=== PATIENT | male | born 1965 | race Two or more races ===

== ENCOUNTER 2021-03-04 10:39 | Emergency (ER) | payer MEDICARE, SELFPAY ==
--- NOTE | ~2021-03-04 | XR_ITS ---
EXAMINATION: XR CHEST CLINICAL INFORMATION: Cough. COMPARISON: None TECHNIQUE: Frontal view of the chest was obtained. FINDINGS: There is elevated right hemidiaphragm. The lungs are somewhat expanded and clear. The heart size and pulmonary vascularity is normal. No gross bony abnormality seen. XR/XR chest 1V IMPRESSION: Elevated right hemidiaphragm. The lungs are clear.
[2021-03-04 10:52] VITALS: BP 128/81; PULSE 96; RESP 21; TEMP 36.1; O2SAT 94; BMI 38.0
--- NOTE | 2021-03-04 13:43 | ED.URI ---
HPI - URI/Sore Throat General Chief Complaint: Upper Respiratory Symptoms Stated Complaint: congestion Time Seen by Provider: 03/04/21 11:17 Source: patient Mode of arrival: ambulatory Limitations: no limitations History of Present Illness HPI Narrative: sore throat and cough with increased congestion. patient continually coughing has been occurrin for 7 days. Patient is covid negative and has the booster Related Data Previous Rx's Medication Instructions Recorded albuterol sulfate 90 mcg/actuation 2 puff INHALATION Q4-6H PRN #8.5 g 03/04/21 aerosol inhaler prednisone 20 mg tablet 60 mg PO DAILY #12 tab 03/04/21 Allergies Allergy/AdvReac Type Severity Reaction Status Date / Time No Known Allergies Allergy Unverified 10/27/19 15:14 [No Known Allergies*] Review of Systems Neurologic: Denies Sensory deficit (Neuro) [facility] Past Medical History Medical History (Updated 03/04/21 @ 14:21 by Tomás Boyd MD) Atrial fibrillation Hypertension Surgical History (Updated 03/04/21 @ 10:56 by Luz Waterman) Hx of cholecystectomy S/P appendectomy Social History Social History Advance Directives: No Advance Directives Information Provided: No Physical Exam Vital Signs: Vital Signs: Last Vital Signs Temp 97.0 F 03/04/21 10:52 Pulse 96 03/04/21 10:52 Resp 21 H 03/04/21 10:52 BP 128/81 03/04/21 10:52 Pulse Ox 94 03/04/21 10:52 BMI result Body Mass Index 38.0 Const: Other: coughing General: healthy appearing Nutritional Appearance: average body habitus Orientation/consciousness: oriented to person and patient oriented x3 Limitations: no limitations HENMT: Head: Yes normal to inspection Ears: external ears normal General nose exam: Normal external nose present Mouth: Normal oral and palatal mucosa present and oropharynx normal Throat: Yes posterior oropharynx normal Eyes: General: appearance normal, both eyes and all related structures Neck: Other: supple Neck: Yes normal visual inspection Chest: Chest palpation & inspection: normal inspection of the chest Resp: Other: lungs with diffuse wheezing Cardio: Jugular venous distension: no JVD Rate: regular rate Rhythm: regular rhythm Heart sounds: S1 normal heart sound present and S2 normal heart sound present GI: Inspection: Yes normal to inspection Palpation (GI): Soft to palpation, nontender and No hepatosplenomegaly present Auscultation: normal bowel sounds : General: Yes no CVA tenderness Back/Spine/Pelvis: Back: no CVA tenderness Skin: General skin exam: no rashes or lesions noted Neuro: General: oriented to person and patient oriented x3 Cranial nerves: Yes CN's II-XII intact bilaterally Motor exam (neuro): 5/5 motor strength present throughout Sensory Exam: No Sensory deficit (Neuro) Extrem: General: Yes normal to inspection Psych: Appearance: grossly normal Course Reevaluation(s) Reevaluation #1: patient with wheezing, given treatment and prednisone. He was swabbed for COVID which is pending. will dc home Time: 14:20 MDM - URI/Sore Throat Imaging Data Chest x-ray: Radiologist's impression: FINDINGS: There is elevated right hemidiaphragm. The lungs are somewhat expanded and clear. The heart size and pulmonary vascularity is normal. No gross bony abnormality seen. XR/XR chest 1V IMPRESSION: Elevated right hemidiaphragm. The lungs are clear. ? Discharge Plan Discharge Clinical Impression: Asthma Qualifiers: Asthma severity: moderate Asthma persistence: persistent Asthma complication type: unspecified Qualified Code(s): J45.40 - Moderate persistent asthma, uncomplicated Patient Disposition: Home, Self-Care Instructions: Asthma (ED) Prescriptions: New prednisone 20 mg tablet 60 mg PO DAILY Qty: 12 RF: 0 albuterol sulfate 90 mcg/actuation HFA aerosol inhaler 2 puff inhalation Q4-6H PRN (Reason: shortness of breath or wheezing) Qty: 8.5 RF: 0 Referrals: Praveen Fry MD [Primary Care Provider] - 1 week
[2021-03-04] MEDS: predniSONE 20 MG TABLET 60 MG PO (14:10)
[2021-03-04] MEDS: Albuterol Sulfate 90 MCG 8 GM INHALER 4 PUFF INHALE (14:11)
[2021-03-04 14:35] LABS: COVID-19 Test Negative (Negative); IDNOW Serial# 08D9AD1C
== END 2021-03-04 14:34 | disposition home or self-care (01) ==
PROVIDERS: Emergency Provider Emergency Medicine; PCP Internal Medicine
DX: J45.40 Moderate persistent asthma, uncomplicated (principal); Z20.822 Contact with and (suspected) exposure to COVID-19; I10 Essential (primary) hypertension; I48.91 Unspecified atrial fibrillation
CPT/HCPCS: 71045; 87635; 99283; 99284

== ENCOUNTER 2021-04-10 15:19 | Emergency (ER) | payer MEDICARE, SELFPAY ==
--- NOTE | 2021-04-10 | ECG_ITS ---
Test Reason : chest pain Blood Pressure : / mmHG Vent. Rate : 115 BPM Atrial Rate : 000 BPM P-R Int : 000 ms QRS Dur : 082 ms QT Int : 320 ms P-R-T Axes : 000 004 024 degrees QTc Int : 442 ms Atrial fibrillation with rapid ventricular response with premature ventricular or aberrantly conducted complexes Nonspecific ST and T wave abnormality Abnormal ECG No previous ECGs available Referred By: Generic ED Physician Electronically Signed By:Pool Peguero
[2021-04-10 15:26] VITALS: BP 148/79; PULSE 106; RESP 20; TEMP 36.9; O2SAT 97; BMI 39.3
[2021-04-10 15:49] LABS: MANUAL DIFF FLAG NO
[2021-04-10 15:50] LABS: Basophils Percent Auto 0.3 % (0-2); Eosinophils Absolute Auto 0.1 X10*3/uL (0.0-0.4); Hemoglobin 14.8 g/dl (14.0-18.0); Imm Gran Abs Auto 0.02 X10*3/uL (0.00-0.03); Imm Gran Pct Auto 0.2 % (0.0-0.4); Lymphocytes Percent Auto 34.6 % (20-40); Mean Corpuscular HGB Conc 33.6 g/dl (31.0-36.0); Mean Corpuscular Hemoglobin 30.5 pg (27.0-33.0); Mean Corpuscular Volume 90.7 fL (80.0-98.0); Mean Platelet Volume 10.7 fL (9.4-12.4); Monocytes Absolute Auto 0.9 X10*3/uL (0.1-1.2); Monocytes Percent Auto 10.7 % (2-11); Neutrophils Absolute Auto 4.6 x10*3/uL (2.0-8.3); Neutrophils Percent Auto 53.2 % (45-73); Platelet Count 186 X10*3/uL (160-400); Red Blood Count 4.85 X10*6/uL (4.60-5.80); Red Cell Distribution Width 12.5 % (11.0-16.0); White Blood Count 8.6 X10*3/uL (4.8-10.8)
[2021-04-10 15:55] VITALS: BP 137/77; PULSE 110; RESP 26; O2SAT 98
--- NOTE | 2021-04-10 16:11 | PC.NURSE ---
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 EKG shows Afib w/RVR. Pt on xarelto for Afib at this time. Pt was supposed to go for cardiac cath 03/25 which was postponed until 04/14 due to not stopping xarelto prior to procedure. Pt CP is reproducable with palpation, worse with inspiration and movement. Pt also states he has had increasing SOB and has not been taking his Lasix at home. Pt is in Afib on the monitor, +pulses, skin warm dry and intact, LCA, abd soft, non tender. IV established, awaiting further orders. Will continue to monitor.
--- NOTE | 2021-04-10 16:11 | ED.CHESTPAIN ---
HPI - Chest Pain General Chief Complaint: Chest Pain Stated Complaint: heart attack? back/ chest pain Time Seen by Provider: 04/10/21 15:54 Source: patient and old records reviewed History of Present Illness HPI narrative: Patient with a history of atrial fibrillation on Xarelto presents with 2 days of left-sided chest pain. Pain has been constant but waxing waning but never fully resolving. It is left mid chest. Worse with inspiration in bending forward. No prior history of pain like this before. He has a contact center consultant and is due for cardiac catheterization on Thursday as his contact center consultant was concerned for coronary artery disease. He does not have nitroglycerin and typically does not get chest pain however. No recent medication changes. No precipitating factors the patient is aware of. No cough fevers or chills. No COVID exposures. His triple vaccinated against COVID with his last dose last year. Pfizer No alleviating factors. Patient is not taking medications so far for the pain. He called the contact center consultant who recommended comes to the emergency department for further evaluation Recently has been having worsening orthopnea. He states he is supposed to be on furosemide but has not taken it due to frequent urination especially at night. Related Data Previous Rx's Medication Instructions Recorded albuterol sulfate 90 mcg/actuation 2 puff INHALATION Q4-6H PRN #8.5 g 03/04/21 aerosol inhaler prednisone 20 mg tablet 60 mg PO DAILY #12 tab 03/04/21 Allergies Allergy/AdvReac Type Severity Reaction Status Date / Time No Known Allergies Allergy Verified 04/10/21 15:26 [No Known Allergies*] Review of Systems Constitutional: Comments: No fevers or chills Cardiovascular: Comments: Chest pain. As described. No palpitations Respiratory: Comments: Positive dyspnea as well as orthopnea specially recently. Gastrointestinal: Comments: No nausea vomiting diarrhea or abdominal pain Integumentary/Breasts: Comments: No rash Neurologic: Comments: No weakness numbness paresthesias PMFSH Past Medical History Medical History (Updated 04/10/21 @ 17:16 by Keyshawn Garzon MD) Atrial fibrillation Hypertension Surgical History (Updated 03/04/21 @ 10:56 by Luz Waterman) Hx of cholecystectomy S/P appendectomy Social History Social History Advance Directives: No Advance Directives Information Provided: No Physical Exam Vital Signs: Vital Signs: Last Vital Signs Temp 98.5 F 04/10/21 15:26 Pulse 110 H 04/10/21 15:55 Resp 26 H 04/10/21 15:55 BP 137/77 04/10/21 15:55 Pulse Ox 98 04/10/21 15:55 BMI result Body Mass Index 39.3 Const: Other: Awake and alert. Anxious but no acute physical distress Chest: Other: Chest wall is nontender to palpation Resp: Other: No respiratory distress. Clear bilaterally. Diminished at the bases. No rales or rhonchi Cardio: Other: Irregularly irregular with a rate of approximately 110 beats per minute GI: Other: Abdomen soft nontender nondistended Skin: Other: Warm pink and dry Neuro: Other: No focal deficit Course Course Course Narrative: Chest pain Acute coronary syndrome Atrial fibrillation with RVR PE possible but less likely given patient is baseline on Xarelto without a history Aspirin Nitroglycerin Diltiazem IV bolus 17:15. Patient is feeling much better. He has diuresed well after IV Lasix. His pain is pretty much resolved. His troponin is normal and the rest of his labs are unremarkable. There is no evidence of cardiac ischemia. He has follow-up already arranged with his contact center consultant on Thursday for a diagnostic cardiac catheterization MDM - Chest Pain Lab Data Result diagrams: 04/10/21 15:43 04/10/21 15:43 Labs: Lab Results 04/10/21 04/10/21 04/10/21 Range/Units 15:43 15:43 15:43 WBC 8.6 (4.8-10.8) X10*3/uL RBC 4.85 (4.60-5.80) X10*6/uL Hgb 14.8 (14.0-18.0) g/dl Hct 44.0 (42.0-52.0) % MCV 90.7 (80.0-98.0) fL MCH 30.5 (27.0-33.0) pg MCHC 33.6 (31.0-36.0) g/dl RDW 12.5 (11.0-16.0) % Plt Count 186 (160-400) X10*3/uL MPV 10.7 (9.4-12.4) fL Immature Gran % (Auto) 0.2 (0.0-0.4) % Neut % (Auto) 53.2 (45-73) % Lymph % (Auto) 34.6 (20-40) % [place] % (Auto) 10.7 (2-11) % Eos % (Auto) 1.0 (0-4) % Baso % (Auto) 0.3 (0-2) % Lymph # (Auto) 3.0 (1.2-4.9) X10*3/uL [place] # (Auto) 0.9 (0.1-1.2) X10*3/uL Eos # (Auto) 0.1 (0.0-0.4) X10*3/uL Baso # (Auto) 0.0 (0.0-0.2) X10*3/uL Abs Immat Gran (auto) 0.02 (0.00-0.03) X10*3/uL Absolute Neuts (auto) 4.6 (2.0-8.3) x10*3/uL Absolute Nucleated RBC 0.000 (0.0-0.012) X10*3/uL Nucleated RBC % (auto) 0.0 (0.0-0.2) /100WBC Sodium 140 (135-145) mmol/L Potassium 4.5 (3.3-5.1) mmol/L Chloride 101 (96-108) mmol/L Carbon Dioxide 33 H (22-29) mmol/L Anion Gap 11 L (12-20) BUN 12 (9-16) mg/dL Creatinine 0.71 (0.5-1.4) mg/dL Estim Creat Clear Calc 161.0 Estimated GFR > 60 Random Glucose 137 H (60-115) mg/dL Calcium 9.3 (8.4-10.2) mg/dL Troponin I High Sens 3.7 (<3.5-35.0) ng/L Discharge Plan Discharge Clinical Impression: Atypical chest pain, Congestive heart failure (CHF) Patient Disposition: Home, Self-Care Additional Instructions: Restart furosemide as we discussed. Follow-up as previously arranged for your cardiac catheterization with your contact center consultant on Thursday. Prescriptions: No Action prednisone 20 mg tablet 60 mg PO DAILY Qty: 12 0RF albuterol sulfate 90 mcg/actuation HFA aerosol inhaler 2 puff inhalation Q4-6H PRN (Reason: shortness of breath or wheezing) Qty: 8.5 0RF Stand Alone Forms: Work/School Release
[2021-04-10 16:12] LABS: Anion Gap 11 (12-20); Blood Urea Nitrogen 12 mg/dL (9-16); Calcium 9.3 mg/dL (8.4-10.2); Carbon Dioxide 33 mmol/L (22-29); Chloride 101 mmol/L (96-108); Estimated Glomerular Filt Rate > 60; Glucose Random 137 mg/dL (60-115); Potassium 4.5 mmol/L (3.3-5.1); Sodium 140 mmol/L (135-145)
[2021-04-10 16:13] LABS: Troponin-I High Sensitivity 3.7 ng/L (<3.5-35.0)
[2021-04-10] MEDS: Furosemide 40 MG/4 ML VIAL IVPUSH (16:32)
[2021-04-10] MEDS: Aspirin Enteric Coated 325 MG TABLET.DR PO (16:32)
[2021-04-10] MEDS: dilTIAZem HCL 50 MG/10 ML VIAL 10 MG IVPUSH (16:32)
[2021-04-10] MEDS: Nitroglycerin 0.4 MG TAB.SUBL SUBLINGUAL (16:39)
== END 2021-04-10 17:46 | disposition home or self-care (01) ==
PROVIDERS: Emergency Provider Emergency Medicine; PCP Internal Medicine
DX: R07.89 Other chest pain (principal); I11.0 Hypertensive heart disease with heart failure; I50.9 Heart failure, unspecified; I48.91 Unspecified atrial fibrillation; Z79.01 Long term (current) use of anticoagulants
CPT/HCPCS: 36415; 80048; 84484; 85025; 93005; 96374; 99284; J1940

== ENCOUNTER 2022-12-16 07:38 | Emergency (ER) | payer MEDICARE, SELFPAY ==
--- NOTE | ~2022-12-16 | XR_ITS ---
EXAMINATION: XR CHEST CLINICAL INFORMATION: Cough, fever COMPARISON: Chest 03/04/2021 TECHNIQUE: 2 views of the chest were obtained. 8:35 AM FINDINGS: Again noted is elevation of the right hemidiaphragm with slight right basilar streaky opacity which likely represents compressive atelectasis and similar to the prior study.. No convincing focal consolidation, interstitial pulmonary edema or pneumothorax. No pleural effusion. No significant abnormality is noted involving the heart, mediastinum, bony thorax or soft tissues. XR/XR chest 2V IMPRESSION: No acute cardiopulmonary disease.
[2022-12-16 07:44] VITALS: BP 149/82; PULSE 83; RESP 18; TEMP 36.6; O2SAT 95; BMI 40.0
[2022-12-16 08:15] LABS: COVID-19 Test Negative (Negative); IDNOW Serial# BCCEAD1C
--- NOTE | 2022-12-16 08:20 | ED_ITS ---
HPI - URI/Sore Throat General Chief Complaint: Upper Respiratory Symptoms Stated Complaint: Cough/Fever Time Seen by Provider: 12/16/22 08:15 Source: patient Mode of arrival: ambulatory Limitations: no limitations History of Present Illness HPI Narrative: Patient is a 57-year-old male with pmhx chf, afib on Xarelto, HTN presenting with worsening headache, nasal congestion, productive cough, and intermittent fevers (Tmax: 100 F) x 7 days. States sputum is thick and green. Associated symptoms include shortness of breath on exertion and wheezing. Has had similar episodes on the past and was prescribed albuterol and prednisone with relief of symptoms. Denies sick contacts and recent travel. Denies ear pain/fullness, chest pain, abdominal pain, nausea, vomiting, diarrhea, urinary symptoms, and weakness. Related Data Previous Rx's Medication Instructions Recorded albuterol sulfate 90 mcg/actuation 2 puff inhalation Q4-6H PRN 03/04/21 aerosol inhaler shortness of breath or wheezing #8.5 grams prednisone 20 mg tablet 60 mg (3 x 20 mg) PO DAILY #12 tabs 03/04/21 albuterol sulfate 90 mcg/actuation 2 inh inhalation Q4-6H PRN 12/16/22 breath activated powder inhaler shortness of breath or wheezing #1 ea doxycycline hyclate 100 mg capsule 100 mg PO BID 10 days #20 caps 12/16/22 prednisone 50 mg tablet 50 mg PO DAILY 5 days #5 tabs 12/16/22 Allergies Allergy/AdvReac Type Severity Reaction Status Date / Time No Known Allergies Allergy Verified 12/16/22 07:46 [No Known Allergies*] Review of Systems Review of Systems: Constitutional : + fever, + chills, No Weight loss, No Fatigue, NoMalaise ENT/Mouth : + sore throat, + Rhinorrhea Eyes: No Eye Pain, No Swelling, No Redness Cardiovascular : + SOB, + dyspnea on exertion, No Chest Pain, No Orthopnea, No Edema, No Palpitations Respiratory : + cough, + sputum, + wheezing Gastrointestinal : No Nausea, No Vomiting, No Diarrhea, No Constipation, No abdominal Pain, No Hematochezia, No Melena Genitourinary : No Dysuria, No Urinary Frequency, No Hematuria, Musculoskeletal : No joint pain, No Myalgias, No Joint Swelling Skin : No Skin Lesions, No rash Neuro : + headache, No Weakness, No Numbness, No Dizziness All other systems reviewed and are negative Yes all other systems are reviewed and are negative [facility] Past Medical History Attestation statement: The following information was validated with the patient. Source: old records reviewed and nursing notes reviewed Medical History (Updated 12/16/22 @ 09:37 by BETHANY Dow) Hypertension Atrial fibrillation Surgical History (Updated 03/04/21 @ 10:56 by Luz Waterman) Hx of cholecystectomy S/P appendectomy Social History Social History Advance Directives: No Advance Directives Information Provided: No Physical Exam Vital Signs: Vital Signs: Last Vital Signs Temp 97.9 F 12/16/22 07:44 Pulse 83 12/16/22 07:44 Resp 18 12/16/22 07:44 BP 149/82 H 12/16/22 07:44 Pulse Ox 95 12/16/22 07:44 O2 Del Method Room Air 12/16/22 07:44 BMI result Body Mass Index 40.0 Noted to be hypertensive on exam likely secondary to illness or anxiety. All other vitals stable. Appearance: Alert.? Oriented X3.? No acute distress.? Head: Normocephalic, atraumatic, no step-offs or deformities Eyes: Pupils equal, round and reactive to light.? ENT: Pharynx mildly erythematous.? Neck: Normal inspection.? Neck supple.? CVS: Normal heart rate and rhythm.? Pulses normal.? Respiratory: No respiratory distress.? Faint wheezing at the left lung base. Abdomen: Soft and nontender.? Skin: Skin warm and dry.? Normal skin color.? Normal skin turgor.? Extremities: No lower extremity edema.? No calf ttp. 5/5 strength to bilateral upper and lower extremities Neuro: Oriented X 3.? No motor deficit.? No sensory deficit. Course Reevaluation(s) Reevaluation #1: Patient is noted to be negative for COVID-19. Chest x-ray no acute cardiopulmonary disease. Will treat for bacterial bronchitis due to symptoms, length of symptoms. Will discharge with prednisone, doxycycline, albuterol. Patient is saturating well on room air even after ambulation. Educated patient on diagnosis and treatment plan, answered all question, patient verbalizes understanding. At this time patient will be discharged home, advised to return with new or worsening symptoms. Educated on worrisome signs and symptoms and when to return. At this time I feel comfortable discharge home. Time: 09:39 Reevaluation #2: Ambulatory O2 94-96% Time: 09:43 Medical Decision Making Medical Decision Making [facility] Narrative: 909 57-year-old male with a non-significant PMH presenting with one week of headache, nasal congestion, productive cough, and intermittent fevers PE w/ mildly erythematous pharynx and faint wheezing at the left lung base Likely acute bronchitis vs. viral ilness . Unlikely asthma exacerbation, CHF, chronic bronchitis, pneumonia, PE, ACS, meningitis, encephalitis, ARDS, dissection and [place]. Plan - viral tests, CXR Differential Diagnosis Differential Diagnoses: The differential diagnosis associated with the presentation includes Likely acute bronchitis vs. viral illness . Unlikely asthma exacerbation, CHF, chronic bronchitis, pneumonia, PE, ACS, meningitis, encephalitis,ARDS, dissection and [place]. Admission/Observation Consideration of admission/observation: Escalation of care including admission/observation considered unlikely Lab Data [facility] Lab Attestation statement: I reviewed the patient's lab results. Labs: Lab Results 12/16/22 Range/Units 07:50 COVID-19 (YOLANDE) Negative (Negative) COVID-19 Clin Com See Note Independent Interpretation I performed an independent interpretation of an: Plain X-Ray Radiology Impression Discussion of test interpretation with radiology: I have reviewed the radiologist's reading. Prescription Management I considered prescription management with: Antibiotic and Other (steroids ) Chronic Conditions Patient?s care impacted by: Other (afib) Discharge Plan Discharge Clinical Impression: Bronchitis Patient Disposition: Home, Self-Care Instructions: Acute Bronchitis (ED) Additional Instructions: Take your medications as prescribed. If you were prescribed antibiotics today, it is important that you take your medication to their entirety, do not skip any doses, do not finish them early. Follow-up with your primary care provider this week. Return to the emergency department with new or worsening symptoms. Such as fevers, chills, chest pain, shortness of breath, nausea, vomiting, dizziness, headache, vision changes, lethargy In case of emergency call 911 XR/XR chest 2V IMPRESSION: No acute cardiopulmonary disease. Prescriptions: New doxycycline hyclate 100 mg capsule 100 mg PO BID 10 Days Qty: 20 0RF prednisone 50 mg tablet 50 mg PO DAILY 5 Days Qty: 5 0RF albuterol sulfate 90 mcg/actuation aerosol powdr breath activated 2 inh inhalation Q4-6H PRN (Reason: shortness of breath or wheezing) Qty: 1 0RF No Action prednisone 20 mg tablet 60 mg PO DAILY Qty: 12 0RF albuterol sulfate 90 mcg/actuation HFA aerosol inhaler 2 puff inhalation Q4-6H PRN (Reason: shortness of breath or wheezing) Qty: 8.5 0RF Referrals: Praveen Fry III, MD [Primary Care Provider] - 2 days Stand Alone Forms: Work/School Release
--- NOTE | 2022-12-16 09:44 | PC.NURSE ---
pt a&o x4, pleasant, calm, and cooperative. pt ambulation trial and O2 95% with ambulation. pt speaking in full complete sentences. rr even/unlabored. family at bedside. plan of care ongoing.
[2022-12-16 09:45] VITALS: O2SAT 95
== END 2022-12-16 09:47 | disposition home or self-care (01) ==
PROVIDERS: Emergency Provider Student in an Organized Health Care Education/Training Program; PCP Internal Medicine
DX: J40 Bronchitis, not specified as acute or chronic (principal); Z11.52 Encounter for screening for COVID-19; I10 Essential (primary) hypertension; I48.91 Unspecified atrial fibrillation; Z79.01 Long term (current) use of anticoagulants
CPT/HCPCS: 71046; 87635; 99283; 99284

== ENCOUNTER 2023-06-07 23:42 | Emergency (ER) | payer MEDICARE, SELFPAY ==
--- NOTE | ~2023-06-07 | CT_ITS ---
EXAMINATION: CT ABDOMEN AND PELVIS WITHOUT CONTRAST CLINICAL INFORMATION: Left flank pain. COMPARISON: 11/16/2016 TECHNIQUE: Multidetector volumetric imaging was performed from the superior aspect of the liver through the pubic symphysis. Sagittal and coronal reformatted images were obtained on the technologist's workstation. This CT examination was performed using dose optimization techniques as appropriate, variously including the following: *Automated exposure control *Adjustment of mA and/or kV according to patient size (this includes techniques or standardized protocols for targeted exams where dose is matched to indication/reason for exam; i.e. extremities or head) *Use of iterative reconstruction technique DLP: 1293 mGy-cm FINDINGS: LUNG BASES: There is atelectatic change and/or scarring at the right lung base. LIVER, GALLBLADDER, AND BILIARY TREE: The liver is normal in size, shape, and attenuation. No focal hepatic lesion or biliary ductal dilatation is present. There has been a prior cholecystectomy. PANCREAS: Atrophic/fatty replaced. SPLEEN: Unremarkable. ADRENAL GLANDS: Unremarkable. KIDNEYS AND URETERS: The kidneys are normal in size, shape, and attenuation. There is a nonobstructing 2 mm calculus midpole left kidney. There is no hydronephrosis. BLADDER: Unremarkable. GASTROINTESTINAL TRACT: The small and large bowel are unremarkable. The appendix is unremarkable. ABDOMINAL WALL: There is a supraumbilical hernia containing fat. LYMPH NODES: Normal. VASCULAR: Unremarkable. PELVIC VISCERA: Unremarkable. OSSEOUS STRUCTURES: There is diffuse thoracolumbar disc degenerative change. CT/CT abdomen pelvis wo IV con IMPRESSION: 1. Nonobstructing 2 mm left renal calculus. 2. Supraumbilical hernia containing fat. Fleischner guidelines were followed.
[2023-06-07 23:50] VITALS: BP 129/81; PULSE 79; RESP 18; TEMP 36; O2SAT 96; BMI 43.0
--- NOTE | 2023-06-08 00:38 | ED.BACK ---
HPI - Back Pain/Injury General Chief Complaint: Back Pain/Injury Stated Complaint: lower back pain, left leg numb Time Seen by Provider: 06/08/23 00:25 Source: patient Mode of arrival: ambulatory Limitations: no limitations History of Present Illness HPI Narrative: 57 yo male with PMH of back pain, afib on xarelto here with c/o L back pain for the past 5 days radiating down to the L buttock and L leg with patchy of tingling hypersensitive skin on L thigh. Has hx of bulging discs in past. No saddle anesthesia, no b/b incontinence, no saddle anesthesia. MD elicited complaint: back pain Pertinent past history: prior back pain Onset (ago): day(s) (5) Timing: constant Severity: moderate Similar Symptoms Previously: Yes Quality: throbbing Location: lumbar spine and left flank Radiation: left upper leg Exacerbating factors: movement, walking and lifting Relieving factors: immobilization Context: unknown Associated symptoms: parasthesias Work related injury: No Related Data Previous Rx's ?Medication ?Instructions ?Recorded albuterol sulfate 90 mcg/actuation 2 puff inhalation Q4-6H PRN 03/04/21 aerosol inhaler shortness of breath or wheezing #8.5 grams prednisone 20 mg tablet 60 mg (3 x 20 mg) PO DAILY #12 tabs 03/04/21 albuterol sulfate 90 mcg/actuation 2 inh inhalation Q4-6H PRN 12/16/22 breath activated powder inhaler shortness of breath or wheezing #1 ea doxycycline hyclate 100 mg capsule 100 mg PO BID 10 days #20 caps 12/16/22 prednisone 50 mg tablet 50 mg PO DAILY 5 days #5 tabs 12/16/22 diazepam 5 mg tablet (Valium) 5 mg PO TID PRN muscle spasm #10 06/08/23 tabs lidocaine 5 % topical patch 1 patch topical DAILY #30 ea 06/08/23 prednisone 20 mg tablet 40 mg (2 x 20 mg) PO DAILY 4 days 06/08/23 #8 tabs Allergies Allergy/AdvReac Type Severity Reaction Status Date / Time Sulfa (Sulfonamide Allergy Severe Anaphylaxis Verified 06/07/23 23:54 Antibiotics) Review of Systems Review of Systems: Constitutional : No Weight loss, No Fever, No Chills, ENT/Mouth : No Hearing loss, No Ear Pain, No Nasal Congestion, No Sinus Pain, No Hoarseness, No sore throat, No Rhinorrhea, No Swallowing Difficulty Cardiovascular : No Chest Pain, No SOB Respiratory : No Cough, No Dyspnea Gastrointestinal : No Nausea, No Vomiting, No Diarrhea, No abdominal Pain, No Hematochezia, No Melena Genitourinary : No Dysuria, No Urinary Frequency, No Hematuria, No Urinary Incontinence, Musculoskeletal : positive back pain Skin : No Skin Lesions, No rash Neuro : No Weakness, No Numbness, pos Paresthesias, no loss of bowel or bladder incontinence, no saddle anesthesia all other systems reviewed and are negative [facility] Past Medical History Attestation statement: The following information was validated with the patient. Source: old records reviewed Medical History Hypertension Atrial fibrillation Surgical History Hx of cholecystectomy S/P appendectomy Social History Social History Smoked in Last 30 Days: No Use of substances other than those prescribed or required for medical reasons: No Advance Directives: No Advance Directives Information Provided: No Do you have a plan to hurt others: No Plan Physical Exam Vital Signs: Vital Signs: Last Vital Signs Temp 98.1 F 06/08/23 01:37 Pulse 72 06/08/23 01:37 Resp 18 06/08/23 01:37 BP 115/75 06/08/23 01:37 Pulse Ox 95 06/08/23 01:37 O2 Del Method Room Air 06/08/23 01:37 BMI result Body Mass Index 43.0 Appearance: Alert. Oriented X3. No acute distress. Eyes: Pupils equal, round and reactive to light. ENT: Pharynx normal. Neck: Normal inspection. Neck supple. CVS: Normal heart rate and rhythm. Pulses normal. Respiratory: No respiratory distress. Breath sounds normal. Abdomen: Soft and nontender. Back: ttp along L paraspinal area reproduces pain Skin: Skin warm and dry. Normal skin color. Normal skin turgor. Extremities: No lower extremity edema. No calf ttp Neuro: Oriented X 3. No motor deficit. No sensory deficit. SILT inner thigh L5 5/5 bilaterally no clonus Medications Administered Discontinued Medications Generic Name Dose Route Start Last Admin Trade Name Freq PRN Reason Stop Dose Admin Diazepam 2 mg 06/08/23 00:45 06/08/23 00:54 Diazepam 2 Mg Tablet PO 06/08/23 00:46 2 mg ONCE ONE Administration Oxycodone HCl 5 mg 06/08/23 00:45 06/08/23 00:54 Oxycodone Hcl Immed Release 5 Mg Tablet PO 06/08/23 00:46 5 mg ONCE ONE Administration Prednisone 40 mg 06/08/23 00:45 06/08/23 00:54 Prednisone 20 Mg Tablet PO 06/08/23 00:46 40 mg ONCE ONE Administration Medical Decision Making Medical Decision Making [facility] Narrative: 57 yo male with PMH of back pain, afib on xarelto here with c/o left low back pain no saddle anesthesia no b/b incontinence no IVDA - has patch of tingling and sensitive skin on L upper thigh but is NV intact at this time no cauda equina symptoms will need basic labs, lytes, CT scan for retroperitoneal hemorrhage given DOAC though low suspicion Differential Diagnosis Differential Diagnoses: The differential diagnosis associated with the presentation includes strain, disck herniation, spasm, lyte abnormality retroperitoneal hemorrhage will start on valium, oxycodone, prednisone Admission/Observation Consideration of admission/observation: Escalation of care including admission/observation considered no hemorrhage stable for DC no cauda equina Lab Data [facility] Lab Attestation statement: I reviewed the patient's lab results. 06/08/23 01:01 06/08/23 01:01 Labs: Lab Results 06/08/23 Range/Units 01:01 WBC 7.2 (4.8-10.8) X10*3/uL RBC 4.43 L (4.60-5.80) X10*6/uL Hgb 13.5 L (14.0-18.0) g/dl Hct 40.1 L (42.0-52.0) % MCV 90.5 (80.0-98.0) fL MCH 30.5 (27.0-33.0) pg MCHC 33.7 (31.0-36.0) g/dl RDW 12.6 (11.0-16.0) % Plt Count 169 (160-400) X10*3/uL MPV 10.0 (9.4-12.4) fL Immature Gran % (Auto) 0.1 (0.0-0.4) % Neut % (Auto) 41.2 L (45-73) % Lymph % (Auto) 44.6 H (20-40) % [place] % (Auto) 10.9 (2-11) % Eos % (Auto) 2.8 (0-4) % Baso % (Auto) 0.4 (0-2) % Lymph # (Auto) 3.2 (1.2-4.9) X10*3/uL [place] # (Auto) 0.8 (0.1-1.2) X10*3/uL Eos # (Auto) 0.2 (0.0-0.4) X10*3/uL Baso # (Auto) 0.0 (0.0-0.2) X10*3/uL Abs Immat Gran (auto) 0.01 (0.00-0.03) X10*3/uL Absolute Neuts (auto) 3.0 (2.0-8.3) x10*3/uL Absolute Nucleated RBC 0.000 (0.0-0.012) X10*3/uL Nucleated RBC % (auto) 0.0 (0.0-0.2) /100WBC Sodium 139 (135-145) mmol/L Potassium 4.2 (3.3-5.1) mmol/L Chloride 105 (96-108) mmol/L Carbon Dioxide 26 (22-29) mmol/L Anion Gap 12 (12-20) BUN 24 H (9-16) mg/dL Creatinine 0.69 (0.5-1.4) mg/dL Estim Creat Clear Calc 169.6 Estimated GFR > 60 Random Glucose 94 (60-115) mg/dL Calcium 9.3 (8.4-10.2) mg/dL Magnesium 1.8 (1.6-2.6) mg/dL Independent Interpretation I performed an independent interpretation of an: CT Scan (no fracture no hemorrhage) Radiology Impression Discussion of test interpretation with radiology: I have reviewed the radiologist's reading. Independent Historian Clinical information obtained from an independent historian. History obtained from or confirmed by: Spouse External Record Review External record reviewed: Inpatient record and Outpatient record Prescription Management I considered prescription management with: Pain Medication and Other Discharge Plan Discharge Clinical Impression: Lumbar radiculopathy Patient Disposition: Home, Self-Care Instructions: Lumbar Radiculopathy (ED) Additional Instructions: return for loss of control of bowel or bladder, numbness in genital area, worsening pain, please call your doctor in the morning for follow up you may need MRI or physical therapy. small stone noted in L kidney but incidental finding not the cause of your pain Prescriptions: New lidocaine 5 % adhesive patch,medicated 1 patch topical DAILY Qty: 30 0RF Rx Instructions: leave on most painful area for up to 12 hrs diazepam [Valium] 5 mg tablet 5 mg PO TID PRN (Reason: muscle spasm) Qty: 10 0RF Rx Instructions: partial fill is okay prednisone 20 mg tablet 40 mg PO DAILY 4 Days Qty: 8 0RF No Action prednisone 20 mg tablet 60 mg PO DAILY Qty: 12 0RF albuterol sulfate 90 mcg/actuation HFA aerosol inhaler 2 puff inhalation Q4-6H PRN (Reason: shortness of breath or wheezing) Qty: 8.5 0RF doxycycline hyclate 100 mg capsule 100 mg PO BID 10 Days Qty: 20 0RF prednisone 50 mg tablet 50 mg PO DAILY 5 Days Qty: 5 0RF albuterol sulfate 90 mcg/actuation aerosol powdr breath activated 2 inh inhalation Q4-6H PRN (Reason: shortness of breath or wheezing) Qty: 1 0RF Print Language: Bengali
[2023-06-08] MEDS: predniSONE 20 MG TABLET 40 MG PO (00:54)
[2023-06-08] MEDS: diazePAM 2 MG TABLET PO (00:54)
[2023-06-08] MEDS: oxyCODONE HCl Immed Release 5 MG TABLET PO (00:54)
[2023-06-08 01:07] LABS: Basophils Percent Auto 0.4 % (0-2); Eosinophils Absolute Auto 0.2 X10*3/uL (0.0-0.4); Eosinophils Percent Auto 2.8 % (0-4); Hematocrit 40.1 % (42.0-52.0); Hemoglobin 13.5 g/dl (14.0-18.0); Imm Gran Abs Auto 0.01 X10*3/uL (0.00-0.03); Imm Gran Pct Auto 0.1 % (0.0-0.4); Lymphocytes Absolute Auto 3.2 X10*3/uL (1.2-4.9); Lymphocytes Percent Auto 44.6 % (20-40); MANUAL DIFF FLAG NO; Mean Corpuscular HGB Conc 33.7 g/dl (31.0-36.0); Mean Corpuscular Hemoglobin 30.5 pg (27.0-33.0); Mean Corpuscular Volume 90.5 fL (80.0-98.0); Monocytes Absolute Auto 0.8 X10*3/uL (0.1-1.2); Monocytes Percent Auto 10.9 % (2-11); Neutrophils Percent Auto 41.2 % (45-73); Platelet Count 169 X10*3/uL (160-400); Red Blood Count 4.43 X10*6/uL (4.60-5.80); Red Cell Distribution Width 12.6 % (11.0-16.0); White Blood Count 7.2 X10*3/uL (4.8-10.8)
[2023-06-08 01:20] LABS: Anion Gap 12 (12-20); Blood Urea Nitrogen 24 mg/dL (9-16); Calcium 9.3 mg/dL (8.4-10.2); Carbon Dioxide 26 mmol/L (22-29); Chloride 105 mmol/L (96-108); Creatinine Clr Calc Pharmacy 169.6; Estimated Glomerular Filt Rate > 60; Glucose Random 94 mg/dL (60-115); Magnesium 1.8 mg/dL (1.6-2.6); Potassium 4.2 mmol/L (3.3-5.1); Sodium 139 mmol/L (135-145)
[2023-06-08 01:37] VITALS: BP 115/75; PULSE 72; RESP 18; TEMP 36.7; O2SAT 95
[2023-06-08 02:33] VITALS: BP 122/79; PULSE 80; RESP 18; TEMP 36.7; O2SAT 95
[2023-06-08 02:43] VITALS: BP 122/79; PULSE 80; RESP 18; TEMP 36.7; O2SAT 95
== END 2023-06-08 02:46 | disposition home or self-care (01) ==
PROVIDERS: Emergency Provider Emergency Medicine; PCP Internal Medicine
DX: M54.16 Radiculopathy, lumbar region (principal); M54.50 Low back pain, unspecified; I48.91 Unspecified atrial fibrillation; R20.2 Paresthesia of skin; M79.605 Pain in left leg; Z79.01 Long term (current) use of anticoagulants; Z79.899 Other long term (current) drug therapy
CPT/HCPCS: 36415; 74176; 80048; 83735; 85025; 99284

== ENCOUNTER 2023-12-23 09:31 | Outpatient (REF) | payer OTHER, SELFPAY ==
--- NOTE | 2023-12-23 09:35 | EMG_ITS ---
Chief complaint: Status post L2-3, L3-4, L4-[address] Sorenson 07/30/2023. Continues to have pain and numbness on left lower extremity, particularly on thigh, knee and bottom of left foot. Left knee gives out. Noted thinning on left quadriceps. Right foot also gets numb but less than left. Reason for referral: Evaluate for radiculopathy versus neuropathy Referred by: Nicole SIMS Procedure done: Bilateral lower extremity NCS/EMG Precautions and/or limitations: On Xarelto Prior lumbar surgery, for this reason paraspinal EMG examination deferred, not reliable to show accurate diagnostic evidence evidence. The limb temperature was monitored continuously and remained between 32-36 degrees C during the performance of the NCS. Nerve Conduction Studies Anti Sensory Summary Table ?Stim Site NR Onset (ms) Norm Onset (ms) Peak (ms) Norm Peak (ms) O-P Amp (?V) Norm O-P Amp Site1 Site2 Delta-0 (ms) Dist (cm) Sincere (m/s) Norm Sincere (m/s) Left Sural Anti Sensory (Lat Mall) Calf ? 2.3 3.9 <4.0 5.6 >5.0 Calf Lat Mall 2.3 14.0 61 Right Sural Anti Sensory (Lat Mall) Calf ? 2.1 2.6 <4.0 12.1 >5.0 Calf Lat Mall 2.1 14.0 67 Motor Summary Table ?Stim Site NR Onset (ms) Norm Onset (ms) O-P Amp (mV) Norm O-P Amp iAmp (mV) Amp (1st) (%) Site1 Site2 Delta-0 (ms) Dist (cm) Sincere (m/s) Norm Sincere (m/s) Left Peroneal Motor (Ext Dig Brev) Ankle ? 5.9 <4.0 1.4 >2.5 1.8 100.0 Ankle Ext Dig Brev 5.9 0.0 B Fib ? 15.2 1.3 1.7 92.9 B Fib Ankle 9.3 37.0 40 >40 Poplt ? 15.9 1.4 1.9 100.0 Poplt B Fib 0.7 6.0 86 >40 Right Peroneal Motor (Ext Dig Brev) Ankle ? 5.5 <4.0 2.7 >2.5 3.4 100.0 Ankle Ext Dig Brev 5.5 0.0 B Fib ? 12.3 3.3 4.1 122.2 B Fib Ankle 6.8 34.0 50 >40 Poplt ? 13.4 3.3 4.2 122.2 Poplt B Fib 1.1 6.0 55 >40 Left Tibial Motor (Abd Gleason Brev) Ankle ? 4.9 <5 4.0 >2.5 4.0 100.0 Ankle Abd Gleason Brev 4.9 0.0 Knee ? 15.6 3.1 3.4 77.5 Knee Ankle 10.7 43.0 40 >40 EMG ?Side Muscle Nerve Root Ins Act Fibs Psw Amp Dur Poly Recrt Int Pat Comment Right AbdHallucis MedPlantar S1-2 Nml Nml Nml Nml Nml 0 Nml Complete Right AntTibialis Dp Br Peron L4-5 Incr 1+ 1+ Nml Nml 0 Nml Complete Right MedGastroc Tibial S1-2 Nml Nml Nml Nml Nml 0 Nml Complete Right VastusMed Femoral L2-4 Nml Nml Nml Nml Nml 0 Nml Complete Right Peroneus Long Sup Br Peron L5-S1 Nml Nml Nml Nml Nml 0 Nml Complete Left AbdHallucis MedPlantar S1-2 Nml Nml Nml Nml Nml 0 Nml Complete Left AntTibialis Dp Br Peron L4-5 Nml Nml Nml Nml Nml 0 Nml Complete Left MedGastroc Tibial S1-2 Nml Nml Nml Nml Nml 0 Nml Complete Left VastusMed Femoral L2-4 Incr 1+ 1+ Nml Nml 0 Nml Complete Left Peroneus Long Sup Br Peron L5-S1 Nml Nml Nml Nml Nml 0 Nml Complete Left RectFemoris Femoral L2-4 Incr 1+ 1+ Nml Nml 0 Nml Complete Left Add Gideon Obturator, Sciat L2-4 Nml Nml Nml Nml Nml 0 Nml Complete FINDINGS: Left peroneal nerve showed prolonged distal latency, small amplitude and normal conduction velocity. Right peroneal nerve showed prolonged distal latency, normal amplitude and normal conduction velocity. All other nerves tested were within normal. Concentric needle EMG was performed in selected muscles of the bilateral lower extremity. Study revealed signs of electric abnormalities as shown in the table above. Left vastus medialis and rectus femoris showed increased insertional activity, PSWs and fibrillations. Right tibialis anterior showed increased insertional activity, PSWs and fibrillations. IMPRESSION: 1. This is an abnormal study. 2. There is electrodiagnostic evidence for lumbar radiculopathy, affecting left L2/3/4/5 nerve roots and right L4/5 nerve roots. 3. There is no electrodiagnostic evidence for peroneal neuropathy at fibular neck tibial neuropathy. lumbosacral plexopathy, or peripheral neuropathy. Thank you for your kind referral. Brea Mcnair MD, ESPERANZA Board Certified, [place] Board [employer] and Rehabilitation (ABPMR) Board Certified, [place] Board of Electrodiagnostic Medicine (ABEM) CODIN [id number] x 2 MTDD
== END 2023-12-23 09:32 | disposition home or self-care (01) ==
LOC: HO.NEURO 09:31
PROVIDERS: PCP Internal Medicine; Visit Provider Physician Assistant
DX: M48.061 Spinal stenosis, lumbar region without neurogenic claudication (principal)
CPT/HCPCS: 95886; 95909

== ENCOUNTER → 2023-12-23 09:35 | Outpatient (BNV) | payer OTHER, SELFPAY | PROVIDERS: PCP Internal Medicine; Visit Provider Physical Medicine & Rehabilitation | DX: M54.16 Radiculopathy, lumbar region (principal) | CPT/HCPCS: 95886; 95909 ==

== ENCOUNTER 2024-04-09 09:19 | Outpatient (AMB) | payer OTHER, SELFPAY ==
--- OUTSIDE RECORDS SUMMARY | 2024-04-09 09:21 | XMS_ITS | Encounter Summary ---
Author Organization [facility] Address [address] [place] [address] Care Team Providers Care Cable Splicer Assistant Name Role Phone Praveen Fry MD Primary Care Provider [phone] Reason for Referral * Consultation (Routine) - Authorized Specialty Diagnoses / Procedures Referred By Contac t Referred To Contact Neurology Diagnoses Spinal stenosis of lumbar region with radiculopathy Karina Harrell MD [address] [place] [address] Phone: tel: fax: Jose L Alas MD [address] [place] [address] [place] [address] Phone: tel: fax: Referral ID Status Reason Start Date Expiration Date Visits Requested Visits Authorized [id number] Authorized Specialty Services Required 03/25/2024 03/25/2025 5 5 Reason for Visit * Reason Comments Follow-up Dejenerative Joint D isease,Lumbosacral Encounter Details Date Type Department Care Team (Latest Contact Info) Description 03/25/2024 10:00 AM EST Office Visit Neurosurgery [place] [facility] [address] [facility] [address] [place] [id number] Karina Harrell MD [address] [place] [id number] Spinal stenosis of lumbar region with radiculopathy (Primary Dx) Social History Tobacco Use Types Packs/Day Years Used Date Smoking Tobacco: Former Cigarettes Smokeless Tobacco: Never Alcohol Use Standard Drinks/Week Comments No 0 (1 standard drink = 0.6 oz pur e alcohol) Sex and Gender Information Value Date Recorded Sex Assigned at Not on file Legal Sex Male 6:17 PM EST Gender Identity Not on file Sexual Orientation Not on file documented as of this encounter Last Filed Vital Signs Vital Sign Reading Time Taken Comments Blood Pressure - - Pulse - - Temperature - - Respiratory Rate - - Oxygen Saturation - - Inhaled Oxygen Concentration - - Weight 135 kg (298 lb) 03/25/2024 9:53 AM EST Height 182.9 cm (6') 03/25/2024 9:53 AM EST Body Mass Index 40.42 03/25/2024 9:53 AM EST documented in this encounter Ordered Prescriptions Prescription Sig Dispense Quantity Refills Last Filled Start Date End Date gabapentin (NEURONTIN) 300 mg capsuleIndications: Spinal stenosis of lumbar region with radiculopathy Take 3 capsules (900 mg total) by mouth 3 (three) times a day. 270 each 2 03/25/2024 5 documented in this encounter Progress Notes * Karina Harrell MD - 03/25/2024 10:51 AM ESTAssociated Problem(s): Spinal stenosis of lumbar region with radiculopathy Unfortunately, Mr. Barrow did not experience any relief from the left SI injection. In fact, he feels worse. We have decompressed the lumbar levels corresponding to the radiculopathy noted on EMG, imaging of the brain and C/T spine is all negative. I will refer him to Neurology for another set ofeyes to review and will increase his gabapentin to 900 mg tid. Alternatively, I considered fibromyalgia as a possible diagnosis but will wait to see the neurology assessment. * Karina Harrell MD - 03/25/2024 10:00 AM EST NEUROSURGERY OFFICE VISIT Date of Visit: 03/25/2024 Referring Physician: No ref. provider found Primary Care Physician: Praveen Fry MD RE: Lauro Barrow : 1965 Chief Complaint Patient presents with Follow-up Dejenerative Joint Disease,Lumbosacral Dear Dr Praveen Fry MD Lauro Barrow is a 58 y.o. male who presents to our office in follow up since a left SI joint injection by Dr. Cardenas on 03/04/24. The patient states that he is worse since that injection with increased electric shocks, pain and numbness particularly in the left upper thigh but also extending downhis calf to the foot. He maintains that it can feel like the pain extends up his entire left hemibody especially in the axilla. Imaging of the proximal neuraxis has been unrevealing. He is now experiencing episodes of right foot numbness. Gabapentin 600mg tid helps for about 15 min, he denies side effects. Past Medical History: Diagnosis Date A-fib ([facility]) DX:A-fib ([facility]) A-fib ([facility]) Back pain with radiation 02/15/2014 DX:Back pain with radiation Cardiomyopathy ([facility]) 04/23/2021 DX:Cardiomyopathy ([facility]); COMMENT: LVEF 25-30% February 2021 Cardiac catheterization April 2021 at [facility] without obstructive coronary artery disease Depression 05/10/2009 DX:Depression DJD (degenerative joint disease), lumbosacral 02/15/2014 DX:DJD (degenerative joint disease), lumbosacral HFrEF (heart failure with reduced ejection fraction) ([facility]) 04/23/2021 DX:HFrEF (heart failure with reduced ejection fraction) ([facility]) HTN (hypertension) 05/10/2009 DX:HTN (hypertension) IgG monoclonal gammopathy DX:IgG monoclonal gammopathy Morbid obesity ([facility]) 06/26/2015 DX:Morbid obesity ([facility]) Opiate addiction ([facility]) 05/10/2009 DX:Opiate addiction ([facility]); COMMENT: Patient denies the use of illicits and he is on methadone [id number]. Ureteral stricture 03/05/2022 DX:Ureteral stricture; COMMENT: Most likely cause of urinary tract symptoms, not BPH per urology inJan 2022 Past Surgical History: Procedure Laterality Date APPENDECTOMY PROCEDURE: HISTORICAL APPENDECTOMY BACK SURGERY 07/30/2023 PROCEDURE: HISTORICAL BACK SURGERY; COMMENT: Left L2-3, left L3-4, left L4-5 decompression, Dr. Harrell Allergies Allergen Reactions Sulfa (Sulfonamide Antibiotics) Sulfamethoxazole-Trimethoprim Rash Reports significant rash and mild dyspnea Current Outpatient Medications Medication Instructions acetaminophen (TYLENOL) 650 mg, Every 6 hours docusate sodium (COLACE) 100 mg capsule 1 tablet, 2 times daily furosemide (LASIX) 20 mg, Daily PRN gabapentin (NEURONTIN) 300 mg, oral, 3 times daily hydroquinone (CAR) 4 % cream 2 times daily methadone (DOLOPHINE) 15 mg, Daily metoprolol succinate (TOPROL-XL) 100 mg, Daily metoprolol tartrate (LOPRESSOR) 25 mg tablet 1 tablet, 2 times daily rivaroxaban (Xarelto) 20 mg tablet 1 tablet, Daily sacubitriL-valsartan (Entresto) 24-26 mg per tablet 1 tablet, oral, 2 times daily tadalafiL (CIALIS) 5 mg Social History Tobacco Use Smoking status: Former Current packs/day: 1.00 Types: Cigarettes Smokeless tobacco: Never Substance Use Topics Alcohol use: No Drug use: Not Currently Types: Heroin Social History Social History Narrative Not on file Family History Problem Relation Name Age of Onset Hypertension Mother Hyperlipidemia Paternal Grandfather Colon polyps Daughter Diabetes Brother Physical Exam Pt is awake and alert. Speech and comprehension are intact. Respirations are unlabored, heart has regular rate. Seated SLR on the left at 90 degrees causes sharp SI region pain. Motor exam reveals 5/5 strength to resistence bilaterally. Gait is antalgic with a Rollator. Imaging No new imaging. [place] 12/23/[address] [place] [facility] [place] left L2/3/4/5 (level of previous surgery) and right L4-5. Assessment/Plan Problem List Items Addressed This Visit Spinal stenosis of lumbar region with radiculopathy - Primary Unfortunately, Mr. Barrow did not experience any relief from the left SI injection. In fact, he feels worse. We have decompressed the lumbar levels corresponding to the radiculopathy noted on EMG, imaging of the brain and C/T spine is all negative. I will refer him to Neurology for another set ofeyes to review and will increase his gabapentin to 900 mg tid. Alternatively, I considered fibromyalgia as a possible diagnosis but will wait to see the neurology assessment. Thank you for allowing us to care for your patient. Karina Harrell MD on 03/25/2024 at 10:51 AM EST CC: No ref. provider found Praveen Fry MD [facility] documented in this encounter Plan of Treatment Scheduled Referrals Name Type Priority Associated Diagnoses Orde r Schedule Ambulatory referral to Neurology Outpatient Referral Routine Spinal stenosis of lumbar region with radiculopathy 1 Occurrences starting 03/25/2024 until 03/25/2025 documented as of this encounter Visit Diagnoses Diagnosis Spinal stenosis of lumbar region with radiculopathy- Primary documented in this encounter Discontinued Medications Medication Sig Discontinue Reason Start Date End Da te gabapentin (NEURONTIN) 300 mg capsuleIndications:Spinal stenosis of lumbar region with radiculopathy Take 1 capsule (300 mg total) by mouth 3 (three) times a day. Reorder 01/15/2024 03/25/2024 documented as of this encounter Care Teams Cable Splicer Assistant Relationship Specialty Start Date End Date Praveen Fry MD [address] [place] [id number] PCP - General Internal Medicine 12/03/23 documented as of this encounter
--- OUTSIDE RECORDS SUMMARY | 2024-04-09 09:21 | XMS_ITS | Clinical Summary ---
Author Organization [facility] Address [address] [place] [address] Care Team Providers Care Fish Receiver Name Role Phone Praveen Fry MD Primary Care Provider Medications Medication Sig Dispensed Refills Start Date End Date Status metoprolol tartrate (LOPRESSOR) 100 MG tablet Take by mouth daily. 0 Active rivaroxaban (XARELTO) 20 MG TABS tablet Take 20 mg by mouth. 0 Active Sacubitril-Valsartan (ENTRESTO PO) Take by mouth 2 (two) times a day. 0 Active Active Problems No known active problems Social History Tobacco Use Types Packs/Day Years Used Date Smoking Tobacco: Never Assessed Sex and Gender Information Value Date Recorded Sex Assigned at Not on file Gender Identity Not on file Sexual Orientation Not on file Job Start Date Occupation Industry Not on file Not on file Not on file Last Filed Vital Signs Vital Sign Reading Time Taken Comments Blood Pressure 127/83 08/05/2021 2:18 PM EDT Pulse 79 08/05/2021 2:18 PM EDT Temperature 35.4 ??C (95.8 ??F) 08/05/2021 2:18 PM ED T Respiratory Rate - - Oxygen Saturation 99% 08/05/2021 2:18 PM EDT Inhaled Oxygen Concentration - - Weight 136.1 kg (300 lb) 08/05/2021 2:18 PM EDT Height 181.9 cm (5' 11.6 ) 08/05/2021 2:18 PM ED T Body Mass Index 41.14 08/05/2021 2:18 PM EDT Plan of Treatment Health Maintenance Due Date Last Done Comments Hepatitis C Screening 1965 COVID-19 Vaccine (#1) 1965 Depression Screening 1975 Preventative Health Evaluation 06/13/1981 Colon Cancer Screening (Colonoscopy) 06/13/2008 Shingrix-Zoster Vaccine (1 of 2) 06/13/2013 DTap / Tdap / Td (2 - Td or Tdap) 09/21/2021 012 Influenza Vaccine (#1) 2023 RSV Adult > 60+ Yrs or Pregn ant (1 - 1-dose 75+ series) 06/13/2038 Hepatitis B Vaccines Aged Out No long er eligible based on patient's age to complete this topic Pneumococcal Vaccine Aged Out No long er eligible based on patient's age to complete this topic RSV Ped < 20 months Aged Out No longe r eligible based on patient's age to complete this topic Care Teams Fish Receiver Relationship Specialty Start Date End Date Praveen Fry MD PCP - General Internal Medicine 06/21/21
--- OUTSIDE RECORDS SUMMARY | 2024-04-09 09:21 | XMS_ITS | Clinical Summary ---
Author Organization [address] [facility] Address [address] [place] [address] Phone Care Team Providers Care Electrotyper Name Role Phone Praveen Fry MD Primary Care Provider [phone] Allergies Active Allergy Reactions Criticality Noted Date Comments Sulfa (Sulfonamide Antibiotics) 05/07/2023 Sulfamethoxazole-Trimeth oprim Rash 12/22/2022 Reports significant rash and mild dyspnea Medications docusate sodium (COLACE) 100 mg capsule Take 1 capsule (100 mg total) by mouth 2 (two) times a day. 11/27/19 23 Active furosemide (LASIX) 20 mg tablet Take 1 tablet (20 mg total) by mouth 1 (one) time each day if needed. direction from your fruit and vegetable packer 02/18/19 24 Active hydroquinone (CAR) 4 % cream Apply topically 2 (two) times a day. TO DARK SPOTS TWICE DAILY FOR 4 MONTHS 10/07/19 23 Active methadone (DOLOPHINE) 5 mg/5 mL solution Take 15 mL (15 mg total) by mouth 1 (one) time each day. 09/10/19 19 Active metoprolol tartrate (LOPRESSOR) 25 mg tablet Take 1 tablet (25 mg total) by mouth 2 (two) times a day. 08/28/19 24 Active rivaroxaban (Xarelto) 20 mg tablet Take 1 tablet (20 mg total) by mouth 1 (one) time each day. 02/12/19 24 Active sacubitriL-valsar thomas (Entresto) 24-26 mg per tablet TAKE ONE TABLET BY MOUTH TWICE A DAY 60 tablet 6 12/15/19 24 Active tadalafiL (CIALIS) 5 mg tablet Take 1 tablet (5 mg total) by mouth. 11/11/19 23 Active metoprolol succinate (TOPROL-XL) 100 mg 24 hr tablet Take 1 tablet (100 mg total) by mouth 1 (one) time each day. 06/19/19 23 Active acetaminophen (TYLENOL) 325 mg tablet Take 2 tablets (650 mg total) by mouth every 6 hours. 11/08/19 23 Active gabapentin (NEURONTIN) 300 mg capsuleIndication s:Spinal stenosis of lumbar region with radiculopathy Take 3 capsules (900 mg total) by mouth 3 (three) times a day. 270 each 2 03/25/19 25 025 Active gabapentin (NEURONTIN) 300 mg capsuleIndication s:Spinal stenosis of lumbar region with radiculopathy Take 1 capsule (300 mg total) by mouth 3 (three) times a day. 90 each 2 01/15/20 24 025 Discontin ued(Reord er) Active Problems Problem Noted Date Diagnosed Date Atrial flutter 12/10/2022 CHF (congestive heart failure) 12/10/2022 Claudication 10/27/2022 BAUTISTA (dyspnea on exertion) 10/24/2022 Assessment & Plan (12/17/2023 10:43 AM EST): Stable. The patient did inform me that he has not been taking his Lasix. We again discussed the importance of medication compliance. He was encouraged to continue to follow a low-salt diet and to perform daily weights. He was encouraged to reach out to our office should he experience a weight gain of 2 pounds in 1 day or 5 pounds in 5 days accompanied by worsening peripheral edema, abdominal distention and shortness of breath. Spinal stenosis of lumbar region with radiculopa thy 10/21/2022 Overview (11/10/2023): Last Assessment & Plan: Patient is 12 days s/p left L2-3, left L3-4, left L4-5 decompression for left leg pain and weakness, difficulty walking. Patient states he has seen improvement in his proximal leg strength, now can lift the leg to gravity, can walk a couple steps without his walker, although pretty much uses his walker all the time. He was very weak before surgery, in a wheelchair, having falls. He states he will get occasional zings of pain in the left leg, but symptoms were fairly constant preop, now occasional. He has residual numbness in the left thigh. He did well in inpatient rehab with physical therapy. He denies any fevers, sweats chills. + Small amount of serosanguineous drainage from the bottom of the wound, he has been keeping it covered. No history of diabetes. He has been using some oxycodone to manage the pain, cannot take NSAIDs is on Xarelto for A-fib. He was discharged home from rehab with oxycodone, states he plans to wean off of it quickly. Overall his incisional pain is tolerable, he would like to try just using Tylenol. Mr. Barrow is doing well postop, has seen improvement in his proximal left leg strength, decreased radicular pain. He has a follow-up appointment with Dr. Harrell in 6 weeks, asked him to call with any concerns or questions prior to that time. His will continue to monitor the wound daily, keep it covered if there is any drainage, call if there is any increasing drainage or redness. He requested a prescription for Tylenol to use instead of his oxycodone. He starts outpatient physical therapy in a week. All postop questions answered. Assessment & Plan (03/25/2024 10:51 AM EST): Unfortunately, Mr. Barrow did not experience any relief from the left SI injection. In fact, he feels worse. We have decompressed the lumbar levels corresponding to the radiculopathy noted on EMG, imaging of the brain and C/T spine is all negative. I will refer him to Neurology for another set of eyes to review and will increase his gabapentin to 900 mg tid. Alternatively, I considered fibromyalgia as a possible diagnosis but will wait to see the neurology assessment. Assessment & Plan (01/15/2024 10:49 AM EST): Mr. Barrow returns after having positive findings on EMG for left greater than right radiculopathy but no response to the TFE's at the levels of moderate foraminal narrowing, namely left L3 and left L4. He is absolutely miserable with constant left leg pain and numbness but also with his history of left hemibody numbness. Imaging of the brain and cervical spine are negative and he has no localized back pain except at the left SI joint. I would like to have him reevaluated by Dr. Cardenas to consider left SI joint injection to see if sacroiliitis is part of this escalation of symptoms. We will also try gabapentin which she states he has never tried in the past but has had no response to Lyrica. Ureteral stricture 03/05/2022 Overview (11/10/2023): Most likely cause of urinary tract symptoms, not BPH per urology in Feb 2022 Hematuria 12/13/2021 Chronic atrial fibrillation 04/30/2021 Overview (11/10/2023): Rate control strategy Anticoagulated with Xarelto Last Assessment & Plan: Patient has history of chronic atrial fibrillation and continues on metoprolol for rate control. He is on Xarelto for anticoagulation given his [id number] score of 2 representing a 2.2% risk of thromboembolism annually. Assessment & Plan (12/17/2023 10:48 AM EST): Presents in atrial fibrillation today with a ventricular heart rate of 81 bpm. He continues to be anticoagulated with Xarelto for stroke reduction. His SSC4VS5- VASc score is 3 for heart failure, hypertension and diabetes. Educated on risks and benefits of continuing with anticoagulation including increased risk for hemorrhage and decreased risk for stroke. Encouraged to seek emergent medical attention should the patient sustain a fall involving a head strike. The patient understands these risks and agrees to continue. We did discuss the potential of updating a 24-hour Holter monitor to further evaluate for overall ventricular rate control in light of his complaints of palpitations. At this time the patient would like to defer until his spinal issues are better managed. Cardiomyopathy 04/23/2021 Overview (11/10/2023): LVEF 25-30% February 2021 Cardiac catheterization April 2021 at [facility] without obstructive coronary artery disease Last Assessment & Plan: The patient has a nonischemic cardiomyopathy. He continues to appear euvolemic on exam today. For now, continue his medical therapy with beta-nohemy, Entresto diuretic. His potassium unfortunately is 5 from a lab a couple of months ago. He will update his BMP. If possible, we can consider increasing his Entresto versus adding low-dose Aldactone as another avenue of neurohormonal blockade for his myopathy. He currently is under evaluation by Dr. Landis from hematology/oncology for MGUS. It always sticks in the back of her mind that if he truly does have an MGUS, down the road he may be at risk for AL amyloid. I offered a cardiac MRI to the patient to begin that evaluation now, but he cannot tolerate the MRI machine, and unfortunately the open bore MRIs cannot complete a cardiac MRI. I will reach out to Dr. Landis discussed his evaluation and consideration for AL amyloid evaluation if this is not already underway, which it may already be. We will update his echocardiogram in about 3 months with a follow-up with Dr. Houston thereafter. He has declined LifeVest as he cannot tolerate the external application. Chest pain 04/23/2021 HFrEF (heart failure with reduced ejection fract ion) 04/23/2021 Overview (11/10/2023): Last Assessment & Plan: Patient has history of HFrEF-EF 45% on recent cardiac MRI, ACC/AHA stage C with NYHA class III-IV symptoms. Patient reports that he has exertional shortness of breath and wakes up at night short of breath. He does not take his furosemide regularly and reports that he consumes a diet high in sodium. He is on Entresto 97/103 mg twice daily and has furosemide ordered 20 mg once a day. Patient is also on metoprolol given his history of atrial fibrillation. I have encouraged him to take his furosemide daily. He does not appear overtly overloaded on exam however body habitus does make this assessment challenging. I have encouraged him to complete his sleep study as he most likely has sleep apnea and and it would be helpful to have this treated. He did have a cardiac MRI however the study was incomplete and delayed enhancement for cardiomyopathy was not possible. Nonetheless his LVEF did improve on medical therapies and he no longer meets criteria for AICD. I will update an echocardiogram. Patient would benefit from an SGL 2 inhibitor however given that he has not been taking his furosemide regularly I will have him take his furosemide regularly and cut back on his sodium and then repeat a basic metabolic panel prior to considering starting SGL 2 inhibitor. Patient advised to seek emergency medical attention by calling 911 if they were to develop severe dyspnea, chest pain that did not resolve with rest or nitroglycerin, or if they were to faint. I've asked the patient to call if they develop worsening symptoms of heart failure such as increased shortness of breath, new or worsening cough, increased swelling in the legs or ankles, or weight gain of more than 2 pounds in one day or 4 pounds in one week. Assessment & Plan (12/17/2023 10:50 AM EST): He appears to be euvolemic upon exam today. He does endorse some mild increase in breathlessness however has not been taking his Lasix for quite some time. We did discuss the importance of monitoring daily weights and being mindful of his sodium intake. He was encouraged to call our office should he experience a weight gain of 2 pounds in 1 day or 5 pounds in 5 days accompanied by worsening peripheral edema, shortness of breath or abdominal distention. At this time via shared decision making, the patient has agreed to take his Lasix as needed for symptoms outlined above. If he feels he has to take his Lasix more than 3 times in 1 week he will call our office and we will update blood work. Hypercoagulability due to atrial fibrillation Overview (11/10/2023): Last Assessment & Plan: Patient continues on Xarelto for anticoagulation without any bleeding or excessive bruising. Monoclonal gammopathy 03/26/2021 Overview (11/10/2023): Now follows with hematology prn basis. Nephrolithiasis 03/20/2021 Ventral hernia without obstruction or gangrene 0 03/20/2021 COVID-19 virus infection 03/01/2020 Biliary colic 10/13/2018 Constipation 10/13/2018 Gallstones 10/13/2018 Recurrent incisional hernia 10/13/2018 Diastolic dysfunction 09/09/2018 Frequent PVCs 09/09/2018 Severe obesity (BMI 35.0-39.9) with comorbidity 06/26/2015 DJD (degenerative joint disease), lumbosacral Condition not found 09/20/2012 Overview (11/10/2023): Umbilical cyst Depression 05/10/2009 Essential hypertension 05/10/2009 Overview (11/10/2023): Last Assessment & Plan: Patient's blood pressures well controlled to slightly soft, but asymptomatic. For now, continue his beta-nohemy, and Entresto as well as diuretic at current doses. Update his BMP for further recommendations. Assessment & Plan (12/17/2023 10:49 AM EST): Well-controlled during today's exam with a reading of 128/78. I have made no changes to his medications. Educated on the importance of diet lifestyle to help further assist in reducing blood pressure. The patient was encouraged to follow low-salt low-fat diet, make purposeful strides towards weight loss, and engage in routine aerobic exercise as tolerated. Opioid dependence 05/10/2009 Overview (11/10/2023): Patient denies the use of illicits and he is on methadone since 2002. Rash 05/10/2009 Encounters Date Type Department Care Team Description 03/25/2024 10:00 AM EST Office Visit Neurosurgery [address] [phone] Karina Harrell MD Spinal stenosis of lumbar region with radiculopathy (Primary Dx) 03/25/[address] [phone] Maria G Yo MA Appointment (Neurology appointment scheduled for 04/18/24 @ 8am w/ at [facility]. Pt aware) 02/19/2024 Telephone Neurosurgery [address] [place] [phone] Nicole Urbano PA 01/15/2024 10:15 AM EST Office Visit [facility] [address] [facility] [address] [place] [phone] Karina Harrell MD DJD (degenerative joint disease), lumbosacral (Primary Dx); Spinal stenosis of lumbar region with radiculopathy from Last 3 Months Immunizations Name Administration Dates Next Due Tdap Tetanus diptheria acell ular pertussis (Boostrix; Adacel) 7yo and older 09/22/2011 Surgical History Surgery Date Site/Laterality Comments APPENDECTOMY PROCEDURE: HISTORICAL APPENDECTOMY BACK SURGERY 07/30/2023 PROCEDURE: HISTORICAL BACK SURGERY; COMMENT: Left L2-3, left L3-4, left L4-5 decompression, Dr. Harrell Medical History Medical History Date Comments Morbid obesity ([facility]) 06/26/2015 DX:Morb id obesity ([facility]) Opiate addiction ([facility]) 05/10/2009 DX:Op iate addiction ([facility]); COMMENT: Patient denies the use of illicits and he is on methadone since 2002. HTN (hypertension) 05/10/2009 DX:HTN (hyper tension) Depression 05/10/2009 DX:Depression DJD (degenerative joint dise ase), lumbosacral 02/15/2014 DX:DJD (degenerative joint d isease), lumbosacral Back pain with radiation 02/15/2014 DX:Back pain with radiation A-fib ([facility]) DX:A-fib ([facility]) Cardiomyopathy ([facility]) 04/23/2021 DX:Card iomyopathy ([facility]); COMMENT: LVEF 25-30% February 2021 Cardiac catheterization April 2021 at [facility] without obstructive coronary artery disease HFrEF (heart failure with re duced ejection fraction) ([facility]) 04/23/2021 DX:HFrEF (heart failure w ith reduced ejection fraction) ([facility]) Ureteral stricture 03/05/2022 DX:Ureteral s tricture; COMMENT: Most likely cause of urinary tract symptoms, not BPH per urology in Feb 2022 IgG monoclonal gammopathy DX:IgG monoclonal gammopathy A-fib ([facility]) Family History Medical History Relation Name Comments Diabetes Brother 1 Colon polyps Daughter Hypertension Mother Hyperlipidemia Paternal Grandfather Relation Name Status Comments Brother 1 Brother 2 Alive DM Brother 3 not of natural causes Daughter Father lung cancer, AI DS Mother Alive heart problems and arthritis Paternal Grandfather Sister brain hemorrhag e Social History Tobacco Use Types Packs/Day Years Used Date Smoking Tobacco: Former Cigarettes Smokeless Tobacco: Never Alcohol Use Standard Drinks/Week Comments No 0 (1 standard drink = 0.6 oz pur e alcohol) Sex and Gender Information Value Date Recorded Sex Assigned at Not on file Legal Sex Male 6:17 PM EST Gender Identity Not on file Sexual Orientation Not on file Obstetrics History Last Filed Vital Signs Vital Sign Reading Time Taken Comments Blood Pressure 128/78 12/17/2023 9:55 AM EST Pulse 104 12/17/2023 9:55 AM EST Temperature - - Respiratory Rate - - Oxygen Saturation 98% 12/17/2023 9:55 AM EST Inhaled Oxygen Concentration - - Weight 135 kg (298 lb) 03/25/2024 9:53 AM EST Height 182.9 cm (6') 03/25/2024 9:53 AM EST Body Mass Index 40.42 03/25/2024 9:53 AM EST Plan of Treatment Health Maintenance Due Date Last Done Comments Hepatitis A Vaccines (1 of 2 - Risk 2-dose series) 06/13/1982 Pneumococcal Vaccine: 50+ Years (1 of 2 - PCV) 06/13/1982 Pneumococcal Vaccine: Pediatrics (0 to 5 Years) and At-Risk Patients (6 to 64 Years) (1 of 2 - PCV) 06/13/1982 Zoster Vaccines (1 of 2) 06/13/2013 DTaP,Tdap,and Td Vaccines (2 - Td or Tdap) 09/21/2021 09/22/2011 Colorectal Cancer Screening: Stool Based Tests (FOBT/FIT) 01/11/2022 Depression Screening 01/11/2022 Medicare Annual Wellness Visit 01/11/2022 Social Influencers of Health Screening 01/11/2022 RSV Immunization Patients 60+ Years Old (1 - Risk 60-74 years 1-dose series) 2023 COVID-19 Vaccine ( season) 2023 02/04/2021, 06/30/2020, 06/09/2020 Influenza Vaccine (#1) 2023 Hypertension/CHF/CAD Annual BMP Blood Test 12/30/2024 12/31/2023, 08/28/2023, 08/28/2023, Additional history exists Cholesterol Screening (Lipid Panel) 12/30/2028 12/31/2023, 04/27/2023 HIV Screening Completed 07/12/2009 Hepatitis C Screening Completed 07/12/2009 HIB Vaccines Aged Out No longer eligi ble based on patient's age to complete this topic HPV Vaccines Aged Out No longer eligi ble based on patient's age to complete this topic Hepatitis B Vaccines Aged Out No long er eligible based on patient's age to complete this topic IPV Vaccines Aged Out No longer eligi ble based on patient's age to complete this topic MMR Vaccines Aged Out No longer eligi ble based on patient's age to complete this topic Meningococcal ACWY Vaccine Aged Out N o longer eligible based on patient's age to complete this topic Meningococcal B Vacine Aged Out No lo nger eligible based on patient's age to complete this topic RSV Immunization Patients Under 20 months Aged Out No longer eligible based on patient's age to complete this topic Varicella Vaccines Aged Out No longer eligible based on patient's age to complete this topic Procedures Procedure Name Priority Date/Time Associated Diagnosis Comments BASIC METABOLIC PANEL Routine 12/31/2023 8:37 AM EST Tachycardia LIPID PANEL WITH REFLEX TO DIRECT LDL Routine 12/31/2023 8:37 AM EST Tachycardia HEPATITIS C SCREENING Routine 07/12/2009 HIV SCREENING Routine 07/12/2009 from Last 3 Months or Most Recently Relevant to Health Maintenance Results * Lipid panel with reflex to direct LDL (12/31/2023 8:37 AM EST) Cholesterol 179 0 - 200 mg/dL LAB CHEMISTRY METHOD 12/31/2023 10:21 AM EST [facility] Triglycerides 67 0 - 150 mg/dL LAB CHEMISTRY METHOD 12/31/2023 10:21 AM EST [facility] HDL 88 >=40 mg/dL LAB CHEMISTRY METHOD 12/31/2023 10:21 AM [facility] LDL Calculated 78 0 - 100 mg/dL LAB CHEMISTRY METHOD 12/31/2023 10:21 AM [facility] VLDL Cholesterol Berhane 13.4 mg/dL LAB CHEMISTRY METHOD 12/31/2023 10:21 AM [facility] Non HDL Chol. (LDL+VLDL) 91 <145 mg/dL LAB CHEMISTRY METHOD 12/31/2023 10:21 AM [facility] Chol/HDL Ratio 2.0 0.0 - 4.4 LAB CHEMISTRY METHOD 12/31/2023 10:21 AM [facility] Blood Venous blood specimen / Unknown Venipuncture / Unknown 12/31/2023 8:37 AM EST 12/31/2023 8:37 AM EST Sylvia Hudson BICYCLE TECHNICIAN LAB BLOOD ORDERABLES F inal Result [facility] [address] [place] [address], * (ABNORMAL) Basic metabolic panel (12/31/2023 8:37 AM EST) Sodium 141 133 - 145 mmol/L LAB CHEMISTRY METHOD 12/31/2023 10:15 AM [facility] Potassium 5.0 3.5 - 5.5 mmol/L LAB CHEMISTRY METHOD 12/31/2023 10:15 AM [facility] Chloride 107 96 - 110 mmol/L LAB CHEMISTRY METHOD 12/31/2023 10:15 AM [facility] CO2 29 21 - 32 mmol/L LAB CHEMISTRY METHOD 12/31/2023 10:15 AM [facility] Anion Gap 5 3 - 11 LAB CHEMISTRY METHOD 12/31/2023 10:15 AM [facility] Glucose 104(H) 70 - 100 mg/dL LAB CHEMISTRY METHOD 12/31/2023 10:15 AM EST [facility] BUN 18 5 - 25 mg/dL LAB CHEMISTRY METHOD 12/31/2023 10:15 AM [facility] Creatinine 0.71 0.70 - 1.30 mg/dL LAB CHEMISTRY METHOD 12/31/2023 10:15 AM [facility] eGFR 105 >=60 mL/min/1. 73m2 LAB CHEMISTRY METHOD 12/31/2023 10:15 AM [facility] Comment:Calculation based on the??Chronic Kidney Disease Epidemiology Collaboration (CKD-EPI) equation refit??without adjustment for race. BUN/Creatinine Ratio 25.4 LAB CHEMISTRY METHOD 12/31/2023 10:15 AM [facility] Calcium 9.8 8.5 - 10.5 mg/dL LAB CHEMISTRY METHOD 12/31/2023 10:15 AM [facility] Blood Venous blood specimen / Unknown Venipuncture / Unknown 12/31/2023 8:37 AM EST 12/31/2023 8:37 AM EST Sylvia Hudson BICYCLE TECHNICIAN LAB BLOOD ORDERABLES F inal Result [facility] [address] [place] [address], * HIV Screening (07/12/2009) HIV Screening Abstracted Historical Provider HEALTH MAINTENANCE Final Result * Hepatitis C Screening (07/12/2009) Hepatitis C Screening Abstracted Historical Provider HEALTH MAINTENANCE Final Result from Last 3 Months or Most Recently Relevant to Health Maintenance Insurance [facility] MEDIC[facility] Member Subscriber Plan / Payer (Ef fective 2018-Present) Name:Lauro Barrow Relation to Subscriber:Self Name:Lauro Barrow Payer ID:[id number] Group ID:[id number] Type:Not on file Address: [place] [address] [address] [id number] Advance Directives Documents on File Type Date Recorded Patient Director Of Strategic Sourcing Expl anation Health Care Decision (hx) 06/23/2023 AD ARITA DIRECTIVE Health Care Decision (hx) 06/23/2023 AD ARITA DIRECTIVE Health Care Decision (hx) 06/23/2023 AD ARITA DIRECTIVE Health Care Decision (hx) 06/23/2023 AD ARITA DIRECTIVE Health Care Decision (hx) 06/23/2023 AD ARITA DIRECTIVE Health Care Decision (hx) 06/23/2023 AD ARITA DIRECTIVE Health Care Decision (hx) 06/23/2023 AD ARITA DIRECTIVE Health Care Decision (hx) 06/23/2023 AD ARITA DIRECTIVE Health Care Decision (hx) 06/23/2023 AD ARITA DIRECTIVE Care Teams Electrotyper Relationship Specialty Start Date End Date Praveen Fry MD [address] [place] [id number] PCP - General Internal Medicine 12/03/23
--- OUTSIDE RECORDS SUMMARY | 2024-04-09 09:22 | XMS_ITS | Encounter Summary ---
Author Organization [facility] Address [address] [place] [address] Care Team Providers Care Produce Sorter Name Role Phone Praveen Fry MD Primary Care Provider [phone] Reason for Visit * Reason Onset Date Comments Appointment 03/25/2024 Neurology appoin tment scheduled for 04/18/24 @ 8am w/ at [facility]. Pt aware Encounter Details Date Type Department Care Team (Late st Contact Info) Description 03/25/2024 Telephone Neurosurgery [facility] [address] [place] [phone] Maria G Yo MA Appointment (Neurology appointment scheduled for 04/18/24 @ 8am w/ at [facility]. Pt aware) Social History Tobacco Use Types Packs/Day Years [...] on file documented as of this encounter Plan of Treatment Not on file documented as of this encounter Visit Diagnoses Not on filedocumented in this encounter Care Teams Produce Sorter Relationship Specialty Start Date End Date Praveen Fry MD [address] [place] [phone] PCP - General Internal Medicine 12/03/23 documented as of this encounter
--- OUTSIDE RECORDS SUMMARY | 2024-04-09 09:22 | XMS_ITS ---
Author Organization [facility] Address Unknown Allergies, Adverse Reactions, Alerts Substance Reaction Status Noted Date Resolved Date Trimethoprim active 06/26/2023 Sulfamethoxazole active 06/26/2023 Pregabalin active 06/26/2023 Problems Problem Status Start Date End Date SPINAL STENOSIS, LUMBAR LIZZETH ON WITH NEUROGENIC CLAUDICATION (Primary) (M48.062 - ICD-10-CM) ACTIVE 06/26/2023 OPIOID DEPENDENCE, UNCOMPLICATED (F11.20 - ICD-10-CM) ACTIVE 06/26/2023 WEAKNESS (R53.1 - ICD-10-CM) ACTIVE 06/26/2023 UNSPECIFIED ATRIAL FIBRILLATION (I48.91 - ICD-10-CM) A CTIVE 06/26/2023 VERTEBROGENIC LOW BACK PAIN (M54.51 - ICD-10-CM) ACTIV E 06/26/2023 ESSENTIAL (PRIMARY) HYPERTENSION (I10 - ICD-10-CM) ACT SENDY 06/26/2023 OBESITY, UNSPECIFIED (E66.9 - ICD-10-CM) ACTIVE 06/26/2023 BENIGN PROSTATIC HYPERPLASIA WITHOUT LOWER URINARY TRACT SYMPTOMS (N40.0 - ICD-10-CM) ACTIVE 06/26/2023 REPEATED FALLS (R29.6 - ICD-10-CM) ACTIVE 2023 ANEMIA, UNSPECIFIED (D64.9 - ICD-10-CM) ACTIVE 0 06/26/2023 MUSCLE WEAKNESS (GENERALIZED) (M62.81 - ICD-10-CM) ACT SENDY 06/26/2023 Encounters Encounter Performer Performer Role Encounter Diagnoses Location Date Discharge - Left against medical advice, or discontinued care [facility] 4 04:40 pm EDT - 4 01:49 pm EDT Social History
[2024-04-09 10:08] VITALS: BP 120/80; PULSE 74; RESP 18; TEMP 36.9; O2SAT 94; BMI 42.6
--- NOTE | 2024-04-09 10:08 | MHC.OFFWIV ---
Intake Vital Signs 04/09/24 10:08 Height 6 ft Weight 314 lb BMI 42.6 BP 120/80 Blood Pressure Location Lt brachial Position Sitting Respiration 18 Pulse 74 Pulse Source Pulse Oximeter Temp 98.5 F Temp Source Oral Pulse Oximetry (%) 94 Oxygen Delivery Method Room Air Intake Visit Reasons: EP cough, mucus, headache here with Intake Note: Pt is here today c/o coughing up mucus and frontal headaches Allergies Sulfa (Sulfonamide Antibiotics) Allergy (Severe, Verified 04/09/24 10:14) Anaphylaxis HPI EP cough, mucus, headache here with HPI Details Patient is a 58-year-old male with history of CHF, hypertension and atrial fibrillation, who comes to the walk-in clinic with his complaining of productive cough, and headache for the last 3-5 days. He reports that family member had been sick with similar symptoms prior to this and brought it into the house. His is also now sick with similar symptoms, however she is apparently also having associated GI symptoms as well, and is dizzy. 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 He has not tested for COVID or rapid flu at home. Not sure if he is up-to-date on his seasonal vaccines. He reports no documented fever, nausea vomiting or diarrhea, weakness or dizziness, significant sore throat, shortness of breath or chest pain dyspnea on exertion, or other significant associated symptoms. FOR[facility]LY [facility], [facility] Medical History Hypertension Atrial fibrillation Surgical History Hx of cholecystectomy S/P appendectomy Review of Systems Const All systems reviewed & are unremarkable except as noted in HPI and below Physical Exam Vital Signs: Last Vital Signs Temp 98.5 F 04/09/24 10:08 Pulse 74 04/09/24 10:08 Resp 18 04/09/24 10:08 BP 120/80 04/09/24 10:08 Pulse Ox 94 04/09/24 10:08 Oxygen Delivery Method Room Air 04/09/24 10:08 BMI result Body Mass Index 42.6 Const General: cooperative, comfortable, no acute distress, alert, awake and Physically active; No healthy appearing, acute distress, in distress, anxious, diaphoretic, intoxicated appearing, poor hygiene or tired appearing Nutritional Appearance: obese Orientation/consciousness: patient oriented x3 Limitations: ambulation with walker HEENT Head: Yes normal to inspection, Yes normocephalic and Yes atraumatic Ears: hearing grossly normal bilaterally, external ears normal, TM's normal bilaterally and EAC's normal General nose exam: Normal external nose present, Abnormal mucous membranes and turbinates present and Nasal discharge present Face and sinus: Yes face symmetric, No ecchymosis, No erythema, No edema, No fluctuance and Yes sinus tenderness (Frontal) Mouth: lip normal and tongue normal Throat: Yes uvula midline, Yes abnormal tonsil (mildly erythematous bilaterally), No peritonsillar mass, Yes posterior oropharynx abnormal, Yes postnasal drainage, No uvular edema and No cobblestoning Eyes General: appearance normal, both eyes and all related structures Chest Chest palpation & inspection: normal palpation of entire chest wall Resp Effort & Inspection: normal respiratory effort, able to speak in complete sentences, normal respiratory pattern, no audible wheezes, Actively coughing (Dry), no grunting, not labored, no nasal flaring, no respiratory distress, no retractions, no stridor, not tachypneic, no tracheal deviation, no tripod positioning, no use of accessory muscles, No prolonged expiratory phase and symmetric chest movement Auscultation: clear to auscultation bilaterally, no crackles, no rales, no rhonchi, no wheezes, diminished lung sounds and No rub present Cardio Palpation: normal PMI Rate: regular rate Rhythm: abnormal rhythm irregularly irregular Skin Other: Good color, warm and dry Neuro General: patient oriented x3 Psych Appearance: grossly normal Mental Status: mental status grossly normal Speech and movement: Normal speech and movement present Affect: normal affect Attitude: cooperative Thought process: Normal thought process present Insight: Good insight present (Psych) Judgement: Good judgement present (Psych) Results AMB Rapid Strep AMB Rapid Strep Negative Last Edit by Joyce Jones CMA on 04/09/24 10:33 Results Reviewed Results Reviewed: Laboratory Last Values Strep Scn Rapid Clinic Negative 04/09/24 10:30 Two-view chest x-ray today shows no acute cardiopulmonary disease per my read and confirmed with radiologist read. Assessment & Plan Assessment & Plan (1) Viral syndrome: Code(s): B34.9 - Viral infection, unspecified Plan Patient is a 58-year-old male with history of CHF, hypertension and atrial fibrillation, who comes to the walk-in clinic with his complaining of productive cough, and headache for the last 3-5 days. He reports that family member had been sick with similar symptoms prior to this and brought it into the house. 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 He has not tested for COVID or rapid flu at home. Not sure if he is up-to-date on his seasonal vaccines. Overall however, he does not complain of chest pressure, and he does appear stable. Oxygen saturation is 94, with his baseline being 95-96 based on prior visits. He is not dyspneic on exertion, however he does use his walker at baseline, and his main concern is actually his headache. It does not sound like he hydrates well, and he does have apparent kidney issues. Suspect patient has influenza or other viral syndrome, based on his symptoms, and perhaps is developing bronchitis. I also wrote him for course of Blaise Snyder, which he can trial for this. Pending flu COVID and RSV results. Due to his CHF and atrial fibrillation history, he needs to be closely monitored and I told him this today. I will write him for Augmentin in case this is the early on in atypical pneumonia he is developing a bacterial sinusitis, however I told him that it will not help for a viral infection. He needs to hydrate, although he knows that he can not over hydrate due to his history of retaining fluid and is apparently seeing a kidney specialist also. However, he reports that he has gone a few days without any water except for with administering his oral medication. We discussed that he is likely due for primary care and cardiology followups, and he stated that he will call them on Thursday to make appointments. He knows to follow up sooner if symptoms are persisting, or go to the emergency department with worrisome or worsening symptoms. He did agree to this Orders: Orders SARS-CoV2/FLU/RSV 04/09/24 J06.9 - Acute upper respiratory infection, unspecified BinaxNOW Covid-19 Ag 04/09/24 Z20.822 - Contact with and (suspected) exposure to COVID-19 AMB Rapid Strep Screen 04/09/24 Z13.9 - Encounter for screening, unspecified XR chest 2V 04/09/24 R05.9 - Cough, unspecified Medications: New amoxicillin-pot clavulanate 875-125 mg 1 tab PO BID 10 tabs 0RF 5 days benzonatate 100 mg PO BID-TID PRN 30 caps 0RF cough oseltamivir (Tamiflu) 75 mg PO BID 10 caps 0RF 5 days Discontinued prednisone Discontinued Reason: Patient Completed Course 60 mg (3 x 20 mg) PO DAILY 12 tabs 0RF diazepam (Valium) partial fill is okay Discontinued Reason: Patient Completed Course 5 mg PO TID PRN 10 tabs 0RF muscle spasm doxycycline hyclate Discontinued Reason: Patient Completed Course 100 mg PO BID 10 days 20 caps 0RF prednisone Discontinued Reason: Patient Completed Course 50 mg PO DAILY 5 days 5 tabs 0RF prednisone Discontinued Reason: Patient Completed Course 40 mg (2 x 20 mg) PO DAILY 4 days 8 tabs 0RF Coding Level of Care Code Est Pt Level 4 (48770) Diagnoses Viral syndrome B34.9
== END 2024-04-09 12:04 | disposition home or self-care (01) ==
PROVIDERS: PCP Internal Medicine; Visit Provider Physician Assistant Medical
DX: B34.9 Viral infection, unspecified (principal)

== ENCOUNTER 2024-04-09 09:19 | Outpatient (REF) | payer OTHER, SELFPAY ==
--- NOTE | ~2024-04-09 | XR_ITS ---
CLINICAL HISTORY: R05.9 - Cough, unspecified 2 view chest x-ray. Comparison: None Findings: Normal lung volumes. Lungs are clear. No pneumothorax or pleural effusion. Heart size normal. No passive venous congestion. No midline shift or tracheal deviation. No acute fracture. Impression: 1. No acute cardiopulmonary disease. This document has been electronically signed by: Slick Campos MD on 04/09/2024 11:17:05
--- OUTSIDE RECORDS SUMMARY | 2024-04-09 10:58 | XMS_ITS | Encounter Summary ---
Author Organization [facility] Address [address] [place] [address] Care Team Providers Care Facilities And Grounds Director Name Role Phone Praveen Fry MD Primary Care Provider [phone] Reason for Visit * Reason Onset Date Comments Appointment 03/25/2024 Neurology appoin tment scheduled for 04/18/24 @ 8am w/ at [facility]. Pt aware Encounter Details Date Type Department Care Team (Late st Contact Info) Description 03/25/2024 Telephone Neurosurgery [facility] [address] [place] [address] Maria G Yo MA Appointment (Neurology appointment scheduled for 04/18/24 @ 8am w/ at [facility]. Pt aware) Social History Tobacco Use [...] on filedocumented in this encounter Care Teams Facilities And Grounds Director Relationship Specialty Start Date End Date Praveen Fry MD [address] [place] [id number] PCP - General Internal Medicine 12/03/23 documented as of this encounter
--- OUTSIDE RECORDS SUMMARY | 2024-04-09 10:58 | XMS_ITS | Clinical Summary ---
Author Organization [facility] Address [address] [place] [address] Phone Care Team Providers Care Good Humor Vendor Name Role Phone Praveen Fry MD Primary Care Provider [phone] Allergies Active Allergy Reactions Criticality Noted Date [...] each day if needed. direction from your workers compensation claims examiner 02/18/19 24 Active hydroquinone (CAR) 4 % [...] like to have him reevaluated by Dr. Carednas to consider left SI joint injection to [...] is on Xarelto for anticoagulation given his [id number] score of 2 representing a 2.2% risk of thromboembolism annually. Assessment & Plan (12/17/2023 10:48 AM EST): Presents in atrial fibrillation today with a ventricular heart rate of 81 bpm. He continues to be anticoagulated with Xarelto for stroke reduction. His [id number]- VASc score is 3 for heart failure, [...] February 2021 Cardiac catheterization April 2021 at [facility] without obstructive coronary artery disease Last Assessment [...] 03/25/2024 10:00 AM EST Office Visit Neurosurgery [address] [phone] Karina Harrell MD Spinal stenosis of lumbar region with radiculopathy (Primary Dx) 03/25/[address] [phone] Maria G Yo MA Appointment (Neurology appointment scheduled for 04/18/24 @ 8am w/ at [facility]. Pt aware) 02/19/2024 Telephone Neurosurgery [address] [place] [phone] Nicole Urbano PA 01/15/2024 10:15 AM EST Office Visit [facility] [address] [place] [phone] Karina Harrell MD DJD (degenerative joint disease), [...] History Medical History Date Comments Morbid obesity ([facility]) 06/26/2015 DX:Morb id obesity ([facility]) Opiate addiction ([facility]) 05/10/2009 DX:Op iate addiction ([facility]); COMMENT: Patient denies the use of illicits and he is on methadone since 2002. HTN (hypertension) 05/10/2009 DX:HTN (hyper tension) Depression 05/10/2009 DX:Depression DJD (degenerative joint dise ase), lumbosacral 02/15/2014 DX:DJD (degenerative joint d isease), lumbosacral Back pain with radiation 02/15/2014 DX:Back pain with radiation A-fib ([facility]) DX:A-fib ([facility]) Cardiomyopathy ([facility]) 04/23/2021 DX:Card iomyopathy ([facility]); COMMENT: LVEF 25-30% February 2021 Cardiac catheterization April 2021 at [facility] without obstructive coronary artery disease HFrEF (heart failure with re duced ejection fraction) ([facility]) 04/23/2021 DX:HFrEF (heart failure w ith reduced ejection fraction) ([facility]) Ureteral stricture 03/05/2022 DX:Ureteral s tricture; COMMENT: Most likely cause of urinary tract symptoms, not BPH per urology in Feb 2022 IgG monoclonal gammopathy DX:IgG monoclonal gammopathy A-fib ([facility]) Family History Medical History Relation Name Comments [...] LAB CHEMISTRY METHOD 12/31/2023 10:21 AM EST [facility] Triglycerides 67 0 - 150 mg/dL LAB CHEMISTRY METHOD 12/31/2023 10:21 AM EST [facility] HDL 88 >=40 mg/dL LAB CHEMISTRY METHOD 12/31/2023 10:21 AM [facility] LDL Calculated 78 0 - 100 mg/dL LAB CHEMISTRY METHOD 12/31/2023 10:21 AM [facility] VLDL Cholesterol Berhane 13.4 mg/dL LAB CHEMISTRY METHOD 12/31/2023 10:21 AM [facility] Non HDL Chol. (LDL+VLDL) 91 <145 mg/dL LAB CHEMISTRY METHOD 12/31/2023 10:21 AM [facility] Chol/HDL Ratio 2.0 0.0 - 4.4 LAB CHEMISTRY METHOD 12/31/2023 10:21 AM [facility] Blood Venous blood specimen / Unknown Venipuncture / Unknown 12/31/2023 8:37 AM EST 12/31/2023 8:37 AM EST Sylvia Hudson BUILD AND DEPLOYMENT ENGINEER LAB BLOOD ORDERABLES F inal Result [facility] [address] [place] [address], * (ABNORMAL) Basic metabolic panel (12/31/2023 8:37 AM EST) Sodium 141 133 - 145 mmol/L LAB CHEMISTRY METHOD 12/31/2023 10:15 AM [facility] Potassium 5.0 3.5 - 5.5 mmol/L LAB CHEMISTRY METHOD 12/31/2023 10:15 AM [facility] Chloride 107 96 - 110 mmol/L LAB CHEMISTRY METHOD 12/31/2023 10:15 AM [facility] CO2 29 21 - 32 mmol/L LAB CHEMISTRY METHOD 12/31/2023 10:15 AM [facility] Anion Gap 5 3 - 11 LAB CHEMISTRY METHOD 12/31/2023 10:15 AM [facility] Glucose 104(H) 70 - 100 mg/dL LAB CHEMISTRY METHOD 12/31/2023 10:15 AM EST [facility] BUN 18 5 - 25 mg/dL LAB CHEMISTRY METHOD 12/31/2023 10:15 AM [facility] Creatinine 0.71 0.70 - 1.30 mg/dL LAB CHEMISTRY METHOD 12/31/2023 10:15 AM [facility] eGFR 105 >=60 mL/min/1. 73m2 LAB CHEMISTRY METHOD 12/31/2023 10:15 AM [facility] Comment:Calculation based on the??Chronic Kidney Disease Epidemiology Collaboration (CKD-EPI) equation refit??without adjustment for race. BUN/Creatinine Ratio 25.4 LAB CHEMISTRY METHOD 12/31/2023 10:15 AM [facility] Calcium 9.8 8.5 - 10.5 mg/dL LAB CHEMISTRY METHOD 12/31/2023 10:15 AM [facility] Blood Venous blood specimen / Unknown Venipuncture / Unknown 12/31/2023 8:37 AM EST 12/31/2023 8:37 AM EST Sylvia Hudson BUILD AND DEPLOYMENT ENGINEER LAB BLOOD ORDERABLES F inal Result [facility] [address] [place] [address], * HIV Screening (07/12/2009) HIV Screening Abstracted Historical Provider HEALTH MAINTENANCE Final Result * Hepatitis C Screening (07/12/2009) Hepatitis C Screening Abstracted Historical Provider HEALTH MAINTENANCE Final Result from Last 3 Months or Most Recently Relevant to Health Maintenance Insurance [facility] MEDIC[facility] Member Subscriber Plan / Payer (Ef fective 2018-Present) Name:Lauro Barrow Relation to Subscriber:Self Name:Lauro Barrow Payer ID:[id number] Group ID:[id number] Type:Not on file Address: [place] [address] [address] [id number] Advance Directives Documents on File Type Date Recorded 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
--- OUTSIDE RECORDS SUMMARY | 2024-04-09 10:58 | XMS_ITS | Clinical Summary ---
Author Organization [facility] Address [address] [place] [address] Care Team Providers Care Fish Seiner Name Role Phone Praveen Fry MD Primary Care Provider [phone] Medications Medication Sig Dispensed Refills Start Date [...] to complete this topic Care Teams Fish Seiner Relationship Specialty Start Date End Date Praveen Fry MD PCP - General Internal Medicine 06/21/21
--- OUTSIDE RECORDS SUMMARY | 2024-04-09 10:58 | XMS_ITS | Encounter Summary ---
Author Organization [facility] Address [address] [place] [address] Care Team Providers Care Insurance Processor Name Role Phone Praveen Fry MD Primary Care Provider [phone] Reason for Referral * Consultation (Routine) - Authorized Specialty Diagnoses / Procedures Referred By Contac t Referred To Contact Neurology Diagnoses Spinal stenosis of lumbar region with radiculopathy Karina Harrell MD [address] [place] [address] Phone: tel: fax: Jose L Alas MD [address] [place] [address] [place] [address] Phone: tel: fax: Referral ID Status Reason Start Date Expiration Date Visits Requested Visits Authorized [id number] Authorized Specialty Services Required 03/25/2024 03/25/2025 5 5 Reason for Visit * Reason Comments Follow-up Dejenerative Joint D isease,Lumbosacral Encounter Details Date Type Department Care Team (Latest Contact Info) Description 03/25/2024 10:00 AM EST Office Visit Neurosurgery [facility] [address] [place] [phone] Karina Harrell MD [address] [place] [phone] Spinal stenosis of lumbar region with radiculopathy [...] effects. Past Medical History: Diagnosis Date A-fib ([facility]) DX:A-fib ([facility]) A-fib ([facility]) Back pain with radiation 02/15/2014 DX:Back pain with radiation Cardiomyopathy ([facility]) 04/23/2021 DX:Cardiomyopathy ([facility]); COMMENT: LVEF 25-30% February 2021 Cardiac catheterization April 2021 at [facility] without obstructive coronary artery disease Depression 05/10/2009 DX:Depression DJD (degenerative joint disease), lumbosacral 02/15/2014 DX:DJD (degenerative joint disease), lumbosacral HFrEF (heart failure with reduced ejection fraction) ([facility]) 04/23/2021 DX:HFrEF (heart failure with reduced ejection fraction) ([facility]) HTN (hypertension) 05/10/2009 DX:HTN (hypertension) IgG monoclonal gammopathy DX:IgG monoclonal gammopathy Morbid obesity ([facility]) 06/26/2015 DX:Morbid obesity ([facility]) Opiate addiction ([facility]) 05/10/2009 DX:Opiate addiction ([facility]); COMMENT: Patient denies the use of illicits and he is on methadone [id number]. Ureteral stricture 03/05/2022 DX:Ureteral stricture; COMMENT: Most [...] Previous EMG 12/23/[address] Live at [facility] showed radiculopathy left L2/3/4/5 (level of previous [...] Fry MD [facility] documented in this encounter Plan [...] documented as of this encounter Care Teams Insurance Processor Relationship Specialty Start Date End Date Praveen Fry MD [address] [place] [id number] PCP - General Internal Medicine 12/03/23 documented as of this encounter
== END 2024-04-09 09:20 | disposition home or self-care (01) ==
LOC: HO.HMGCX 09:19
PROVIDERS: PCP Internal Medicine; Visit Provider Physician Assistant Medical
DX: Z13.89 Encounter for screening for other disorder (principal)
CPT/HCPCS: 71046

== ENCOUNTER 2024-04-09 10:59 | Outpatient (REF) | payer OTHER, SELFPAY ==
[2024-04-09 15:51] LABS: Influenza A PCR NEGATIVE (Negative); Influenza B PCR NEGATIVE (Negative); Resp Syncy Virus RNA Qual PCR NEGATIVE (Negative); SARS COV2 PCR INHOUSE NEGATIVE (Negative)
== END 2024-04-09 11:00 | disposition home or self-care (01) ==
LOC: HO.LNP 10:59
PROVIDERS: Visit Provider Physician Assistant Medical
DX: J06.9 Acute upper respiratory infection, unspecified (principal)
CPT/HCPCS: 0241U; 71046; 87880; 99212

== ENCOUNTER → 2024-04-09 11:00 | Outpatient (BNV) | payer OTHER, SELFPAY | PROVIDERS: PCP Internal Medicine; Visit Provider Radiology Diagnostic Radiology | DX: R05.9 Cough, unspecified (principal) | CPT/HCPCS: 71046 ==